=== PATIENT | female | born 1985 | race African-American/Black ===

== ENCOUNTER 2016-05-20 05:32 | Inpatient (IN) | payer OTHER ==
[2016-05-20] MEDS ORDERED: RINGERS SOLUTION,LACTATED 1,000 ML IV PRN (05:49)
[2016-05-20] MEDS ORDERED: OXYTOCIN/NORMAL SALINE 20 UNIT/1,000 ML RTUINJ ONE (05:56)
[2016-05-20] MEDS ORDERED: MISOPROSTOL 0.2 MG TABLET ONE (05:56)
[2016-05-20] MEDS ORDERED: LIDOCAINE 1% INJ-PF (10 MG/ML) 30 ML SDV ONE (05:56)
--- NOTE | 2016-05-20 06:23 | L&D General Admission ---
General Admit Datetime Report Generated by CPN: 05/20/2016 06:00 INFORMATION Patient Age: 31 (03/18/2016 14:35:QS system process) EDC: 06/09/2016 00:00 (05/20/2016 05:38:Kayla Dickinson RN) : 5 (05/20/2016 05:38:Kayla Dickinson RN) Para: 3 (05/20/2016 05:38:Kayla Dickinson RN) Term: 3 (05/20/2016 05:38:Kayla Dickinson RN) : 0 (05/20/2016 05:38:Kayla Dickinson RN) Spontaneous Abortions: 0 (05/20/2016 05:38:Kayla Dickinson RN) Induced Abortions: 0 (05/20/2016 05:38:Kayla Dickinson RN) Livin (05/20/2016 05:38:Kayla Dickinson RN) Baby, Number in Womb: 1 (05/20/2016 05:38:Sharon Chowdary) CARE Primary Commercial Roofing Estimator: [facility] (05/20/2016 05:38:Sharon Chowdary) Height (in): 70 (05/20/2016 05:45:QS system process) ALLERGIES Medication Allergy: No (05/20/2016 05:38:Sharon Epi) Medication Allergies: No Known Drug Allergies (05/20/2016) (05/20/2016 05:41:QS system process) Latex Allergy: No Latex Allergies (05/20/2016 05:38:Sharonmani Chowdary) Food Allergies: none (05/20/2016 05:38:Sharon Epi) Environmental Allergies: none (05/20/2016 05:38:Sharon Chowdary) COMMUNICATION Primary Language: Serbian (05/20/2016 05:38:Sharon Chowdary) Medical Tx Preferred Language: Serbian (05/20/2016 05:38:Sharon Chowdary) DEMOGRAPHICS Address: [address] [place] [id number] (03/18/2016 14:35:QS system process) Zipcode: [address] (03/18/2016 14:35:QS system process) Home (03/18/2016 14:35:QS system process) SSN: [id number] (03/18/2016 14:35:QS system process) Next of Kin Name: JAYASHREE ARANA (03/18/2016 14:35:QS system process) Next of Kin (03/18/2016 14:35:QS system process) Next of Kin Relationship: SPO (03/18/2016 14:35:QS system process) Date of : 1985 (03/18/2016 14:35:QS system process) Marital Status: (03/18/2016 14:35:QS system process) Sex: Female (03/18/2016 14:35:QS system process) Race: (03/18/2016 14:35:QS system process) Ethnicity: Non- or (03/18/2016 14:35:QS system process) Jain: Jewish (03/18/2016 14:35:QS system process) DRUG AND ALCOHOL USE Alcohol: No (05/20/2016 05:38:Sharon Chowdary) Cigarettes: Never Smoker. [id number] (05/20/2016 05:38:Sharon Chowdayr) Marijuana: No (05/20/2016 05:38:Sharon Chowdary) Cocaine: No (05/20/2016 05:38:Sharon Chowdary) Other Illicit Drugs: No (05/20/2016 05:38:Sharon Chowdary) VACCINE HISTORY Influenza Vaccine: No (05/20/2016 05:38:Sharon Chowdary) Pneumococcal Vaccine: No (05/20/2016 05:38:Sharon Chowdary) Tetanus Vaccine: No (05/20/2016 05:38:Sharon Chowdary) Tdap Vaccine: No (05/20/2016 05:38:Sharon Chowdary) Hepatitis B Vaccine: No (05/20/2016 05:38:Sharon Chowdary) Direct Chill Caster: [employer] (05/20/2016 05:38:Sharon Chowdary) Feeding Preference: Both (05/20/2016 05:38:Sharon Chowdary) Circumcision: Yes (05/20/2016 05:38:Sharon Chowdary) Tubal Ligation: No (05/20/2016 05:38:Sharon Chowdary) Tubal Authorization Signed: N/A (05/20/2016 05:38:Sharon Chowdary) Consent: N/A (05/20/2016 05:38:Sharon Chowdary) Consent Signed: N/A (05/20/2016 05:38:Sharon Chowdary) Plans for Labor and Delivery: None (05/20/2016 05:38:Sharon Chowdary) Support Person: emanual (05/20/2016 05:38:Sharon Chowdary) Support Person Relationship: (05/20/2016 05:38:Sharon Chowdary) Cultural/Spritual Practice: N/A (05/20/2016 05:38:Sharon Chowdary) Spir/Cult Dietary Needs: N/A (05/20/2016 05:38:Sharon Chowdary) LIVING SITUATION/DISCHARGE PLAN Living Arrangements: House (05/20/2016 05:38:Sharon Chowdary) Adequate Access to:: Electric; Heat; Refrigeration; Plumbing/Running water; Phone; Transportation (05/20/2016 05:38:Sharon Chowdary) WIC Program: Yes (05/20/2016 05:38:Sharon Chowdary) Discharge Blanker Operator Person: marlenual (05/20/2016 05:38:Sharon Chowdary) Person to Help after Discharge: emanual (05/20/2016 05:38:Sharon Chowdary) Currently Using Commun Resources: No (05/20/2016 05:38:Sharon Chowdary) Car Seat for Discharge: Yes (05/20/2016 05:38:Sharon Chowdary) LABS Blood Type: B Positive (05/20/2016 05:38:Kayla Dickinson RN) Group Beta Strep: negative (05/20/2016 05:38:Kayla Dickinson RN) Gonorrhea: Negative (05/20/2016 05:38:Kayla Dickinson RN) Chlamydia: Negative (05/20/2016 05:38:Kayla Dickinson RN) RPR/VDRL: Nonreactive (05/20/2016 05:38:Kayla Dickinson RN) HIV Results: nonreactive (05/20/2016 05:38:Kayla Dickinson RN) Hepatitis B: Negative (05/20/2016 05:38:Kayla Dickinson RN) Rubella: Immune (05/20/2016 05:38:Kayla Dickinson RN) OB/PREVIOUS HISTORY History of Previous : No (05/20/2016 05:38:Sharon Chowdary) History of Gestational Diabetes: No (05/20/2016 05:38:Sharon Chowdary) History of PIH: No (05/20/2016 05:38:Sharon Chowdary) History of Incompetent Cervix: No (05/20/2016 05:38:Sharon Chowdary) History of Placenta Previa/Abrup: No (05/20/2016 05:38:Sharon Chowdary) History of Macrosomia: No (05/20/2016 05:38:Sharon Chowdary) History of IUGR: No (05/20/2016 05:38:Sharon Chowdary) History of Hemorrhage: No (05/20/2016 05:38:Sharon Chowdary) History of Loss/Stillborn: No (05/20/2016 05:38:Sharon Chowdary) History of : No (05/20/2016 05:38:Sharon Chowdary) History of D (Rh) Sensitization: No (05/20/2016 05:38:Sharon Chowdary) History Recurrent Loss/Stillborn: No (05/20/2016 05:38:Sharon Chowdary) History Depression/PP Depression: No (05/20/2016 05:38:Sharon Chowdary) History of Uterine Anomaly/IRMA: No (05/20/2016 05:38:Sharon Chowdary) History of Infertility: No (05/20/2016 05:38:Sharon Chowdary) History of ART Treatment: No (05/20/2016 05:38:Sharon Chowdary) History of IRMA: No (05/20/2016 05:38:Sharon Chowdary) Comments Obstetrical History: 1st 2005 2nd 2007 3rd 2012 current 2016 (05/20/2016 05:38:Sharon Chowdary) MEDICAL HISTORY Med Hx Diabetes: No (05/20/2016 05:38:Sharon Chowdary) Med Hx Hypertension: No (05/20/2016 05:38:Sharon Chowdary) Med Hx Heart Disease: No (05/20/2016 05:38:Sharon Chowdary) Med Hx Autoimmune Disorder: No (05/20/2016 05:38:Sharon Chowdary) Med Hx Kidney Disease/UTI: No (05/20/2016 05:38:Sharon Chowdary) Med Hx Neurologic/Epilepsy: No (05/20/2016 05:38:Sharon Chowdary) Med Hx Psychiatric Disorders: No (05/20/2016 05:38:Sharon Chowdary) Med Hx Hepatitis/Liver Disease: No (05/20/2016 05:38:Sharon Chowdary) Med Hx Varicosities/Phlebitis: No (05/20/2016 05:38:Sharon Chowdary) Med Hx Thyroid Dysfunction: No (05/20/2016 05:38:Sharon Chowdary) Med Hx Trauma/Violence: No (05/20/2016 05:38:Sharon Chowdary) Med Hx Blood Transfusion: No (05/20/2016 05:38:Sharon Chowdary) Med Hx Pulmonary (Asthma,TB): No (05/20/2016 05:38:Sharon Chowdary) Med Hx Breast: No (05/20/2016 05:38:Sharon Chowdary) Med Hx ASSESSMENT MANAGER Surgery: No (05/20/2016 05:38:Sharon Chowdary) Med Hx Hospitalization/Surgery: No (05/20/2016 05:38:Sharon Chowdary) Med Hx Anesthetic Complications: No (05/20/2016 05:38:Sharon Chowdary) Med Hx Abnormal Pap Smear: No (05/20/2016 05:38:Sharon Chowdary) Other Medical Diseases: No (05/20/2016 05:38:Sharon Chowdary) Med Hx Significant Family Hx: No (05/20/2016 05:38:Sharon Chowdary) INFECTIOUS HISTORY Inf Hx Gonorrhea: No (05/20/2016 05:38:Sharon Chowdary) Inf Hx Chlamydia: No (05/20/2016 05:38:Sharon Chowdary) Inf Hx Syphilis: No (05/20/2016 05:38:Sharon Chowdary) Inf Hx HIV/AIDS: No (05/20/2016 05:38:Sharon Chowdary) Inf Hx Human Papilloma Virus: No (05/20/2016 05:38:Sharon Chowdary) Inf Hx Pt/Partner Genital Herpes: No (05/20/2016 05:38:Sharon Chowdary) Inf Hx Tuberculosis/Exposure: No (05/20/2016 05:38:Sharon Chowdary) Inf Hx Hepatitis B,C: No (05/20/2016 05:38:Sharon Chowdary) Inf Hx Rash or Viral Illness: No (05/20/2016 05:38:Sharon Chowdary) GENETIC HISTORY Gen Hx Age >=35 at ADRY: No (05/20/2016 05:38:Sharon Chowdary) Gen Hx Thalassemia: No (05/20/2016 05:38:Sharon Chowdary) Gen Hx Congenital Heart Defect: No (05/20/2016 05:38:Sharon Chowdary) Gen Hx Neural Tube Defect: No (05/20/2016 05:38:Sharon Chowdary) Gen Hx Down's Syndrome: No (05/20/2016 05:38:Sharon Chowdary) Gen Hx Pacheco-Sachs: No (05/20/2016 05:38:Sharon Chowdary) Gen Hx Ricardo: No (05/20/2016 05:38:Sharon Chowdary) Gen Hx Familial Dysautonomia: No (05/20/2016 05:38:Sharon Chowdary) Gen Hx Sickle Cell Disease/Trait: No (05/20/2016 05:38:Sharon Chowdary) Gen Hx Hemophilia/Blood Disorder: No (05/20/2016 05:38:Sharon Chowdary) Gen Hx Muscular Dystrophy: No (05/20/2016 05:38:Sharon Chowdary) Gen Hx Cystic Fibrosis: No (05/20/2016 05:38:Sharon Chowdary) Gen Hx Huntingtons Chorea: No (05/20/2016 05:38:Sharon Chowdary) Gen Hx Mental Retardation/Autism: No (05/20/2016 05:38:Sharon Chowdary) Gen Hx Tested for Fragile X: No (05/20/2016 05:38:Sharon Chowdary) Gen Hx Other Inher/Chromosomal: No (05/20/2016 05:38:Sharon Chowdary) Gen Hx Maternal Metabolic DO: No (05/20/2016 05:38:Sharon Chowdary) Gen Hx Pt Father or FOB Defect: No (05/20/2016 05:38:Sharon Chowdary) Gen Hx Other Genetic History: No (05/20/2016 05:38:Sharon Chowdary) Gen Hx Drugs/Meds since LMP: No (05/20/2016 05:38:Sharon Chowdray)
[2016-05-20 06:29] LABS: ABSOLUTE BASOPHILS # (AUTO) 0.1 10^3/uL (0.0-0.2); ABSOLUTE EOSINOPHILS # (AUTO) 0.3 10^3/uL (0.0-0.6); ABSOLUTE MONOCYTES (AUTO) 0.9 10^3/uL (0.1-1.4); ABSOLUTE NEUT (AUTO) 6.7 10^3/uL (1.7-8.2); BASOPHILS % (AUTO) 0.7 % (0-2); EOSINOPHILS % (AUTO) 3.2 % (0-6); HEMATOCRIT 31.6 % (36.0-47.0); HEMOGLOBIN 10.4 g/dL (12.0-15.5); HGB HCT DIFFERENCE -0.4; LYMPHOCYTES % (AUTO) 20.4 % (13-45); MEAN CORPUSCULAR HEMOGLOBIN 27.6 pg (27.0-33.4); MEAN CORPUSCULAR VOLUME 83 fl (80-97); MONOCYTES % (AUTO) 8.6 % (3-13); RED BLOOD COUNT 3.79 10^6/uL (3.72-5.28); RED CELL DISTRIBUTION WIDTH 12.9 % (11.5-14.0); SEGMENTED NEUTROPHILS % (AUTO) 67.1 % (42-78)
[2016-05-20] MEDS ORDERED: ACETAMINOPHEN WITH CODEINE #3 TABLET ONE (06:30)
[2016-05-20] MEDS ORDERED: IBUPROFEN 800 MG TABLET ONE (06:30)
--- NOTE | 2016-05-20 07:34 | Delivery Summary ---
Del Sum A-C Datetime Report Generated by CPN: 05/20/2016 07:34 ADMISSION DATA Chief Complaint: Uterine Contractions Indication for Induction: Not Applicable Admission Impression: Term, Intrauterine ; Active Labor; Intact Membranes Admit Provider Comments: Term precipitous labor and delivery. GBS neg DELIVERY PERSONNEL Delivery Doctor:: Leatha Tobar MD Labor and Delivery Nurse:: Sharon Chowdary RNcontinuous still operator Nurse:: Genoveva Ugarte RN Nursery Nurse:: Juany Cox RN Additional Personnel: : C. Fore RN MATERNAL INFORMATION Delivery Anesthesia: None Medications After Delivery: Pitocin Bolus-Please Comment; Pitocin Drip 20 Units/1000ml NSS Meds After Delivery Comment: 20 units pitocin after placenta delivery Estimated Blood Loss (ml): 350 Maternal Complications: Precipitous Labor (<3hrs) Provider Comments: Nurse controlled over intact perineum, no lacs. live male infant ap 9/9. spontaneous intact placenta 3vc. no complications LABOR SUMMARY EDC: 06/09/2016 00:00 No. Babies in Womb: 1 Attempted: No Labor Anesthesia: None LABOR INFORMATION Reason for Induction: Not Applicable Onset of Labor: 05/20/2016 04:00 Complete Dilatation: 05/20/2016 06:10 Oxytocin: N/A Group B Beta Strep: negative Steroids Given: None Reason Steroids Not Administered: Not Applicable MEMBRANES Membranes Rupture Method: Spontaneous Rupture of Membranes: 05/20/2016 06:10 Length of Rupture (hr): 0.02 Amniotic Fluid Color: Clear Amniotic Fluid Amount: Moderate STAGES OF LABOR Stage 1 hr: 2 Stage 1 min: 10 Stage 2 hr: 0 Stage 2 min: 1 Stage 3 hr: 0 Stage 3 min: 9 Total Time in Labor hr: 2 Total Time in Labor min: 20 VAGINAL DELIVERY Episiotomy: None Laceration Extension: N/A Laceration Type: None Laceration Repair: Not Applicable CSECTION DELIVERY Primary Indication: N/A Secondary Indication: N/A CSection Incidence: N/A Labor: N/A Elective: N/A CSection Incision: N/A BABY A INFORMATION Infant Delivery Date/Time: 05/20/2016 06:11 Method of Delivery: Vaginal Born in Route : No : N/A Forceps: N/A Vacuum Extraction: N/A Shoulder Dystocia : No PRESENTATION/POSITION BABY A Presentation: Cephalic Cephalic Presentation: Vertex Vertex Position: Left Occipital Anterior Breech Presentation: N/A PLACENTA INFORMATION BABY A Placenta Delivery Time : 05/20/2016 06:20 Placenta Method of Delivery: Spontaneous Placenta Status: Delivered SCORES BABY A Heart Rate 1 min: >100 bpm Resp Effort 1 min: Good Cry Reflex Irritability 1 min: Cough or Sneeze or Pulls Away Muscle Tone 1 min: Active Motion Color 1 min: Body [place], Extremities Blue Resuscitation Effort 1 min: Tactile Stimulation SCORE 1 MIN: 9 Heart Rate 5 min: >100 bpm Resp Effort 5 min: Good Cry Reflex Irritability 5 min: Cough or Sneeze or Pulls Away Muscle Tone 5 min: Active Motion Color 5 min: Body [place], Extremities Blue SCORE 5 MIN: 9 INFANT INFORMATION BABY A Gestational Age at Delivery: 37.1 Gestational Status: Early Term- 37- 38.6 Weeks Outcome : Liveborn Condition : Stable Infant Sex: Male WEIGHT/LENGTH BABY A Birthweight (gm): 2415 Weight (lb): 5 Weight (oz): 5 Length (in): 18.50 Length (cm): 46.99 CORD INFORMATION BABY A Nuchal Cord : N/A Suction: Mouth ASSESSMENT BABY A Infant Complications: None Physical Findings at Delivery: Within Normal Limits Respirations: Appears Normal Skin to Skin: Yes Skin to Skin Time (min): 10 Email Marketing Processor/ALS Called : No Care By: Belia Philippeer RN Transferred To: Remains with Mother BABY B INFORMATION : N/A SIGNATURES Signature: with User ID: [email or web address]
--- NOTE | 2016-05-20 08:01 | L&D Flow Sheet ---
LD Flowsheet Datetime Report Generated by CPN: 05/20/2016 08:00 Datetime: 05/20/2016 07:45 Vital Signs Stage of : Recovery (Merly Serna, RN) Datetime: 05/20/2016 07:36 NBP Sys/Miriam/Mean (mmHg): 127 (QS system process) : 88 (QS system process) : 103 (QS system process) Pulse: 84 (QS system process) Datetime: 05/20/2016 07:30 Vital Signs Stage of : Recovery (Merly Serna, RN) Datetime: 05/20/2016 06:51 NBP Sys/Miriam/Mean (mmHg): 121 (QS system process) : 86 (QS system process) : 99 (QS system process) Pulse: 86 (QS system process) Datetime: 05/20/2016 06:40 Temperature (F): 98.3 (Sharon Chowdary) Temperature (C): 36.8 (QS system process) Temperature Route: Oral (Sharon Chowdary) Datetime: 05/20/2016 06:38 Pain Pain Scale: 4 (Sharon Chowdary) Pain Presence: Constant (Sharon Chowdary) Pain Type: Cramping (Sharon Chowdary) Pain Location: Abdomen; Perineum (Sharon Chowdary) Pain Goal: 0 (Sharon Chowdary) Pain Relief Measures: Pain Medication Given (Sharon Chowdary) Datetime: 05/20/2016 06:20 NBP Sys/Miriam/Mean (mmHg): 123 (QS system process) : 67 (QS system process) : 90 (QS system process) Pulse: 85 (QS system process) Datetime: 05/20/2016 06:18 Vital Signs Stage of : Recovery (Sharon Chowdary) Datetime: 05/20/2016 06:15 Vital Signs Stage of : Recovery (Sharon Chowdary) Datetime: 05/20/2016 06:12 Vital Signs Stage of : Recovery (Sharon Chowdary) NBP Sys/Miriam/Mean (mmHg): 122 (QS system process) : 83 (QS system process) : 98 (QS system process) Pulse: 83 (QS system process) Datetime: 05/20/2016 06:11 Patient Position/Activity: Left Lateral (Sharon Chowdary) Stage 2 Comments: of viable baby boy, see delivery summary (Sharon Chowdary) Datetime: 05/20/2016 06:10 Vaginal Exam Dilatation (cm): 10.0 (Sharon Chowdary) Effacement (%): 100 (Sharon Chowdary) Station: 3 (Sharon Chowdary) Membranes Rupture Method: Spontaneous (Sharon Chowdary) Amniotic Fluid Color: Clear (Sharon Chowdary) Amniotic Fluid Amount: Moderate (Sharon Chowdary) Stage 2 Pushing: Urge to Push (Sharon Chowdary) Pushing Progress: Descent with Pushing; Presenting Part Visible (Sharon Chowdary) Datetime: 05/20/2016 06:09 Patient Position/Activity: Hands-Knees (Sharon Chowdary) Datetime: 05/20/2016 06:08 Patient Position/Activity: Left Lateral (Sharon Chowdary) Datetime: 05/20/2016 06:05 Patient Care IV/Blood Work: IV Started (Sharon Chowdary) Patient Care Comments: 18G In RFA x3 attempts (Sharon Chowdary) Datetime: 05/20/2016 06:02 Communication Comments: Dr. Tobar called and informed pt was 9 cm. (Kayla Teena, RN) Datetime: 05/20/2016 05:54 Pain Pain Scale: 5 (Sunshine) Pain Presence: Intermittent (Sunshine) Pain Type: Cramping (Sunshine) Pain Location: Abdomen; Back (Sunshine) Pain Goal: 0 (Sunshine) Pain Relief Measures: Comfort Measures (Sunshine) Pain Coping: Breathing Through Contractions (Sunshine) Vaginal Bleeding: None (Sunshine) Maternal Assessment Level of Consciousness: Fully Conscious (Sharon Chowdary) DTR's/Clonus: DTRs 2+; No Clonus (Sharon Chowdary) Headache: Denies (Sharon Chowdary) Breath Sounds, Left: Clear and Equal (Sharon Chowdary) Breath Sounds, Right: Clear and Equal (Sharon Chowdary) Nausea/Vomiting: Denies (Sharon Chowdary) RUQ Epigastric Pain: Denies (Sharon Chowdary) Patient Position/Activity: Right Tilt (Sharon Chowdary) Teaching Instructional Method: Verbal (Sharon Chowdary) Plan of Care: Plan of Care Discussed (Sharon Chowdary) Unit Routine: [place] to Room; Call [place]itten; Bed; Visiting Policy; Waiting Areas; Infant Security; Phone/Cell Phone Use; Photography; Unit Personnel; Consents Signed; Handwashing; Flu/Illness Precautions; Monitoring; IV Pumps; Safety/Fall Risk Prevention; Diet/Nutrition Services; Bathroom Privileges; Routine Time Outs; Medications (Sharon Chowdary) Datetime: 05/20/2016 05:46 NBP Sys/Miriam/Mean (mmHg): 128 (QS system process) : 58 (QS system process) : 83 (QS system process) Pulse: 93 (QS system process) Datetime: 05/20/2016 05:45 Communication Provider Notified (Name): Dr Tobar notified of the patient presented with contractions cervix 5/80/-1. Orders recieved to admit the patient. (Sharon Chowdary) Datetime: 05/20/2016 05:42 Vaginal Exam Dilatation (cm): 5.0 (Sharon Chowdary) Effacement (%): 70 (Sharon Chowdary) Station: -1 (Sharon Chowdary) Exam by: A Chowdary Rn (Sharon Chowdary) Datetime: 05/20/2016 05:38 Membranes Ruptured Date/Time: 05/20/2016 06:10 (Sharon Chowdary) Patient Care Comments: patient to the unit for labor check (Sharon Chowdary)
[2016-05-20] MEDS ORDERED: ACETAMINOPHEN WITH CODEINE #3 TABLET PO PRN ×2 (08:02)
[2016-05-20] MEDS ORDERED: MEASLES,MUMPS&RUBELLA VACC/PF 0.5 ML VIAL SUBCUT PRN (08:02)
[2016-05-20] MEDS ORDERED: ZOLPIDEM TARTRATE 5 MG TABLET PO PRN (08:02)
[2016-05-20] MEDS ORDERED: DIBUCAINE 1% OINTMENT 28 GM TP PRN (08:02)
[2016-05-20] MEDS ORDERED: DIPH/PERTUSS(ACELL)/TETANUS VAC/PF 0.5 ML SYR (>=10YO) IM PRN (08:02)
[2016-05-20] MEDS ORDERED: BENZOCAINE/MENTHOL AEROSOL SPRAY 56 ML TOP PRN (08:02)
[2016-05-20] MEDS ORDERED: OXYTOCIN/NORMAL SALINE 1,000 ML IV PRN (08:02)
--- NOTE | 2016-05-20 08:31 | Admission Physical ---
Datetime Report Generated by CPN: 05/20/2016 08:30 CURRENT ADMISSION Hx Assessment: The History has been Reviewed and is Current Chief Complaint: Uterine Contractions Indication for Induction: Not Applicable Admit Plan: Admit to Unit; Initiate Labor Protocol ALLERGIES Medication Allergies: No Medication Allergies: No Known Drug Allergies (05/20/2016) Latex: No Latex Allergies Food Allergies: none Environmental Allergies: none OBSTETRICAL HISTORY EDC: 06/09/2016 00:00 : 5 Para: 3 Term: 3 : 0 SAB: 0 IAB: 0 Livin Gestational Diabetes: No Rh Sensitization: No Incompetent Cervix: No IRMA: No Infertility: No ART Treatment: No Uterine Anomaly: No IUGR: No Hx Previous C/S: No Macrosomia: No Hx Loss/Stillborn: No PIH: No Hx : No Placenta Previa/Abruption: No Depression/PP Depression: No PTL/PROM: No Post Hemorrhage: No Obstetrical History Comments: 1st 2005- labor 8hrs 2nd 2007- labor 3 hrs 3rd 2012- labor 1 hr preciptous current 2016 SEE RECORDS Alcohol: No Marijuana : Yes Marijuana Frequency: Occasional Previous Treatment: None Cocaine: No Other Illicit Drugs: No Cigarettes: Current Some Day Smoker. [id number] Cigarette Frequency: < 5 per day Advised to Stop: Yes MEDICAL HISTORY Diabetes: No Blood Transfusion: No Pulmonary Disease (Asthma, TB): No Breast Disease: No Hypertension: No Oil Filters Inspector Surgery: No Heart Disease: No Hosp/Surgery: No Autoimmune Disorder: No Anesthetic Complications: No Kidney Disease: No Abnormal Pap Smear: No Neuro/Epilepsy: No Psychiatric Disorders: No Other Medical Diseases: No Hepatitis/Liver Disease: No Significant Family History: No Varicosities/Phlebitis: No Trauma/Violence : No Thyroid Dysfunction: No Medical History Comments: anemia sickle cell trait INFECTIOUS HISTORY Gonorrhea: No Genital Herpes: No Chlamydia: No Tuberculosis: No Syphilis: No Hepatitis: No HIV/AIDS Exposure: No Rash or Viral Illness: No HPV: No PHYSICAL EXAM General: Normal HEENT: Deferred Neurologic: Deferred Thyroid: Deferred Heart: Normal Lungs: Normal Breast: Deferred Back: Deferred Abdomen: Normal Genitourinary Exam: Normal Extremities: Normal DTRs: Normal Pelvic Type: Adequate Vital Signs: Reviewed; Within Normal Limits FETUS A EGA: 37.1 FHR- Baseline: 140 Variability: Moderate 6-25bpm Accelerations: Absent Decelerations: Variable FHR Category: Category II Admit Comment: Term precipitous labor and delivery. GBS neg PLANS FOR LABOR AND DELIVERY Labor and Delivery: None Pain Management: None Feeding Preference: Both Circumcision: Yes INFORMED CONSENT Signature: with User ID: [email or web address]
[2016-05-20] MEDS: DOCUSATE SODIUM 100 MG CAPSULE PO SCH ×2 (10:20→17:54)
[2016-05-20] MEDS: SENNOSIDES/DOCUSATE 8.6-50 MG 1 EACH TABLET PO SCH (10:21)
[2016-05-20] MEDS: PRENATAL VITAMIN W-O CA NO5/FE FUMARATE/FA CAPSULE PO SCH (10:21)
[2016-05-20] MEDS: FERROUS SULFATE 325 MG TABLET PO SCH ×2 (10:21→17:54)
[2016-05-20] MEDS: IBUPROFEN 800 MG TABLET PO SCH ×2 (13:49→21:50)
[2016-05-20 14:47] LABS: URINE BARBITURATES SCREEN NEGATIVE; URINE METHADONE SCREEN NEGATIVE; URINE PHENCYCLIDINE SCREEN NEGATIVE
--- NOTE | 2016-05-20 19:01 | L&D Flow Sheet ---
LD Flowsheet Datetime Report Generated by CPN: 05/20/2016 19:00 Datetime: 05/20/2016 08:09 NBP Sys/Miriam/Mean (mmHg): 130 (QS system process) : 76 (QS system process) : 98 (QS system process) Pulse: 89 (QS system process) Datetime: 05/20/2016 08:06 NBP Sys/Miriam/Mean (mmHg): 151 (Annotations: PT moving arm) (Merly Serna RN) : 110 (QS system process) : 121 (QS system process) Pulse: 84 (QS system process) Datetime: 05/20/2016 07:45 Stage of : Recovery (Merly Serna, RN) Datetime: 05/20/2016 07:36 NBP Sys/Miriam/Mean (mmHg): 127 (QS system process) : 88 (QS system process) : 103 (QS system process) Pulse: 84 (QS system process) Datetime: 05/20/2016 07:30 Stage of : Recovery (Merly Kareem, RN)
[2016-05-21] MEDS: IBUPROFEN 800 MG TABLET PO SCH ×3 (05:19→21:45)
--- NOTE | 2016-05-21 06:11 | L&D General Admission ---
General Admit Datetime Report Generated by CPN: 05/21/2016 06:00 INFORMATION Patient Age: 31 (03/18/2016 14:35:QS system process) EDC: 06/09/2016 00:00 (05/20/2016 05:38:Kayla Dickinson RN) : 5 (05/20/2016 05:38:Kayla Dickinson RN) Para: 3 (05/20/2016 05:38:Kayla Dickinson RN) Term: 3 (05/20/2016 05:38:Kayla Dickinson RN) : 0 (05/20/2016 05:38:Kayla Dickinson RN) Spontaneous Abortions: 0 (05/20/2016 05:38:Kayla Dickinson RN) Induced Abortions: 0 (05/20/2016 05:38:Kayla Dickinson RN) Livin (05/20/2016 05:38:Kayla Dickinson RN) Baby, Number in Womb: 1 (05/20/2016 05:38:Sharon Chowdary) CARE Primary Qi Specialist: [facility] (05/20/2016 05:38:Sahron Chowdary) Height (in): 70 (05/20/2016 05:45:QS system process) ALLERGIES Medication Allergy: No (05/20/2016 05:38:Sharon Epi) Medication Allergies: No Known Drug Allergies (05/20/2016) (05/20/2016 05:41:QS system process) Latex Allergy: No Latex Allergies (05/20/2016 05:38:Sharonmani Chowdary) Food Allergies: none (05/20/2016 05:38:Sharon Epi) Environmental Allergies: none (05/20/2016 05:38:Sharon Chowdary) COMMUNICATION Primary Language: Portuguese (05/20/2016 05:38:Sharon Chowdary) Medical Tx Preferred Language: Portuguese (05/20/2016 05:38:Sharon Chowdary) DEMOGRAPHICS Address: [address] [place] [id number] (03/18/2016 14:35:QS system process) Zipcode: [address] (03/18/2016 14:35:QS system process) Home (03/18/2016 14:35:QS system process) SSN: [id number] (03/18/2016 14:35:QS system process) Next of Kin Name: JAYASHREE ARANA (03/18/2016 14:35:QS system process) Next of Kin (03/18/2016 14:35:QS system process) Next of Kin Relationship: SPO (03/18/2016 14:35:QS system process) Date of : 1985 (03/18/2016 14:35:QS system process) Marital Status: (03/18/2016 14:35:QS system process) Sex: Female (03/18/2016 14:35:QS system process) Race: (03/18/2016 14:35:QS system process) Ethnicity: Non- or (03/18/2016 14:35:QS system process) Rastafarian: Zoroastrian (03/18/2016 14:35:QS system process) DRUG AND ALCOHOL USE Alcohol: No (05/20/2016 05:38:Sharon Chowdary) Cigarettes: Current Some Day Smoker. [id number] (05/20/2016 05:38:Merly Serna RN) Average Cigarettes Smoked: < 5 per day (05/20/2016 05:38:Merly Serna RN) Advised to Stop Smoking: Yes (05/20/2016 05:38:Merly Serna RN) Marijuana: Yes (05/20/2016 05:38:Merly Serna RN) Marijuana Use: Occasional (05/20/2016 05:38:Merly Serna RN) Marijuana Previous Treatment: None (05/20/2016 05:38:Merly Serna RN) Cocaine: No (05/20/2016 05:38:Sharonmani Chowdary) Other Illicit Drugs: No (05/20/2016 05:38:Sharon Epi) VACCINE HISTORY Influenza Vaccine: No (05/20/2016 05:38:Sharon Chowdary) Pneumococcal Vaccine: No (05/20/2016 05:38:Sharon Chowdary) Tetanus Vaccine: No (05/20/2016 05:38:Sharon Chowdary) Tdap Vaccine: No (05/20/2016 05:38:Sharon Chowdary) Hepatitis B Vaccine: No (05/20/2016 05:38:Sharon Chowdary) Boat Joiner: [facility] (05/20/2016 05:38:Sharon Chowdary) Feeding Preference: Both (05/20/2016 05:38:Sharon Chowdary) Circumcision: Yes (05/20/2016 05:38:Sharon Chowdary) Tubal Ligation: No (05/20/2016 05:38:Sharon Chowdary) Tubal Authorization Signed: N/A (05/20/2016 05:38:Sharon Chowdary) Consent: N/A (05/20/2016 05:38:Sharon Chowdary) Consent Signed: N/A (05/20/2016 05:38:Sharon Chowdary) Pain Management Plans: None (05/20/2016 05:38:Merly Serna RN) Plans for Labor and Delivery: None (05/20/2016 05:38:Sharon Chowdary) Support Person: emanual (05/20/2016 05:38:Sharon Chowdary) Support Person Relationship: (05/20/2016 05:38:Sharon Chowdary) Cultural/Spritual Practice: N/A (05/20/2016 05:38:Sharon Chowdary) Spir/Cult Dietary Needs: N/A (05/20/2016 05:38:Sharon Chowdary) LIVING SITUATION/DISCHARGE PLAN Living Arrangements: House (05/20/2016 05:38:Sharon Chowdary) Adequate Access to:: Electric; Heat; Refrigeration; Plumbing/Running water; Phone; Transportation (05/20/2016 05:38:Sharon Chowdary) WIC Program: Yes (05/20/2016 05:38:Sharon Chowdary) Discharge Lease Administration Analyst Person: samanta (05/20/2016 05:38:Sharon Chowdary) Person to Help after Discharge: marlenual (05/20/2016 05:38:Sharon Chowdary) Currently Using Commun Resources: No (05/20/2016 05:38:Sharon Chowdary) Outside Agency/Vehicle Painter: No (05/20/2016 05:38:Merly Srena RN) Car Seat for Discharge: Yes (05/20/2016 05:38:Sharon Chowdary) Adoption Requested: No (05/20/2016 05:38:Merly Serna RN) Pt Contact w/ Post : N/A (05/20/2016 05:38:Merly Serna RN) LABS Blood Type: B Positive (05/20/2016 05:38:Kayla Dickinson RN) Hemoglobin: 10.4 L (05/20/2016 06:03:QS system process) Hematocrit: 31.6 L (05/20/2016 06:03:QS system process) MCV: 83 (05/20/2016 06:03:QS system process) Group Beta Strep: negative (05/20/2016 05:38:Kayla Dickinson RN) Gonorrhea: Negative (05/20/2016 05:38:Kayla Dickinson RN) Chlamydia: Negative (05/20/2016 05:38:Kayla Dickinson RN) RPR/VDRL: Nonreactive (05/20/2016 05:38:Kayla Dickinson RN) HIV Results: nonreactive (05/20/2016 05:38:Kayla Dickinson RN) Hepatitis B: Negative (05/20/2016 05:38:Kayla Dickinson RN) Rubella: Immune (05/20/2016 05:38:Kayla Dickinson RN) OB/PREVIOUS HISTORY History of Previous : No (05/20/2016 05:38:Sharon Chowdary) History of Gestational Diabetes: No (05/20/2016 05:38:Sharon Chowdary) History of PIH: No (05/20/2016 05:38:Sharon Chowdary) History of Incompetent Cervix: No (05/20/2016 05:38:Sharon Chowdary) History of Placenta Previa/Abrup: No (05/20/2016 05:38:Sharon Chowdary) History of Macrosomia: No (05/20/2016 05:38:Sharon Chowdary) History of IUGR: No (05/20/2016 05:38:Sharon Chowdary) History of Hemorrhage: No (05/20/2016 05:38:Sharon Chowdary) History of Loss/Stillborn: No (05/20/2016 05:38:Sharon Chowdary) History of : No (05/20/2016 05:38:Sharon Chowdary) History of D (Rh) Sensitization: No (05/20/2016 05:38:Sharon Chowdary) History Recurrent Loss/Stillborn: No (05/20/2016 05:38:Sharon Chowdary) History Depression/PP Depression: No (05/20/2016 05:38:Sharon Chowdary) History of Uterine Anomaly/IRMA: No (05/20/2016 05:38:Sharon Chowdary) History of Infertility: No (05/20/2016 05:38:Sharon Chowdary) History of ART Treatment: No (05/20/2016 05:38:Sharon Chowdary) History of IRMA: No (05/20/2016 05:38:Sharon Chowdary) Comments Obstetrical History: 1st 2005- labor 8hrs 2nd 2007- labor 3 hrs 3rd 2012- labor 1 hr preciptous current 2016 (05/20/2016 05:38:Sharon Chowdary) MEDICAL HISTORY Med Hx Diabetes: No (05/20/2016 05:38:Sharon Chowdary) Med Hx Hypertension: No (05/20/2016 05:38:Sharon Chowdary) Med Hx Heart Disease: No (05/20/2016 05:38:Sharon Chowdary) Med Hx Autoimmune Disorder: No (05/20/2016 05:38:Sharon Chowdary) Med Hx Kidney Disease/UTI: No (05/20/2016 05:38:Sharon Chowdary) Med Hx Neurologic/Epilepsy: No (05/20/2016 05:38:Sharon Chowdary) Med Hx Psychiatric Disorders: No (05/20/2016 05:38:Sharon Chowdary) Med Hx Hepatitis/Liver Disease: No (05/20/2016 05:38:Sharon Chowdary) Med Hx Varicosities/Phlebitis: No (05/20/2016 05:38:Sharon Chowdary) Med Hx Thyroid Dysfunction: No (05/20/2016 05:38:Sharon Chowdary) Med Hx Trauma/Violence: No (05/20/2016 05:38:Sharon Chowdary) Med Hx Blood Transfusion: No (05/20/2016 05:38:Sharon Chowdary) Med Hx Pulmonary (Asthma,TB): No (05/20/2016 05:38:Sharon Chowdary) Med Hx Breast: No (05/20/2016 05:38:Sharon Chowdary) Med Hx PROMOTIONAL MARKETING ANALYST Surgery: No (05/20/2016 05:38:Sharon Chowdary) Med Hx Hospitalization/Surgery: No (05/20/2016 05:38:Sharon Chowdary) Med Hx Anesthetic Complications: No (05/20/2016 05:38:Sharon Chowdary) Med Hx Abnormal Pap Smear: No (05/20/2016 05:38:Sharon Chowdary) Other Medical Diseases: No (05/20/2016 05:38:Sharon Chowdary) Med Hx Significant Family Hx: No (05/20/2016 05:38:Sharon Chowdary) Details of Med/Surg Hx: anemia sickle cell trait (05/20/2016 05:38:Sharon Chowdary) INFECTIOUS HISTORY Inf Hx Gonorrhea: No (05/20/2016 05:38:Sharon Chowdary) Inf Hx Chlamydia: No (05/20/2016 05:38:Sharon Chowdary) Inf Hx Syphilis: No (05/20/2016 05:38:Sharon Chowdary) Inf Hx HIV/AIDS: No (05/20/2016 05:38:Sharon Chowdary) Inf Hx Human Papilloma Virus: No (05/20/2016 05:38:Sharon Chowdary) Inf Hx Pt/Partner Genital Herpes: No (05/20/2016 05:38:Sharon Chowdary) Inf Hx Tuberculosis/Exposure: No (05/20/2016 05:38:Sharon Chowdary) Inf Hx Hepatitis B,C: No (05/20/2016 05:38:Sharon Chowdary) Inf Hx Rash or Viral Illness: No (05/20/2016 05:38:Sharon Chowdary) GENETIC HISTORY Gen Hx Age >=35 at ADRY: No (05/20/2016 05:38:Sharon Chowdary) Gen Hx Thalassemia: No (05/20/2016 05:38:Sharon Chowdary) Gen Hx Congenital Heart Defect: No (05/20/2016 05:38:Sharon Chowdary) Gen Hx Neural Tube Defect: No (05/20/2016 05:38:Sharon Chowdary) Gen Hx Down's Syndrome: No (05/20/2016 05:38:Sharon Chowdary) Gen Hx Pacheco-Sachs: No (05/20/2016 05:38:Sharon Chowdary) Gen Hx Ricardo: No (05/20/2016 05:38:Sharon Chowdary) Gen Hx Familial Dysautonomia: No (05/20/2016 05:38:Sharon Chowdary) Gen Hx Sickle Cell Disease/Trait: No (05/20/2016 05:38:Sharon Chowdary) Gen Hx Hemophilia/Blood Disorder: No (05/20/2016 05:38:Sharon Chowdary) Gen Hx Muscular Dystrophy: No (05/20/2016 05:38:Sharon Chowdary) Gen Hx Cystic Fibrosis: No (05/20/2016 05:38:Sharon Chowdary) Gen Hx Huntingtons Chorea: No (05/20/2016 05:38:Sharon Chowdary) Gen Hx Mental Retardation/Autism: No (05/20/2016 05:38:Sharon Chowdary) Gen Hx Tested for Fragile X: No (05/20/2016 05:38:Sharon Chowdary) Gen Hx Other Inher/Chromosomal: No (05/20/2016 05:38:Sharon Chowdary) Gen Hx Maternal Metabolic DO: No (05/20/2016 05:38:Sharon Chowdary) Gen Hx Pt Father or FOB Defect: No (05/20/2016 05:38:Sharon Chowdary) Gen Hx Other Genetic History: No (05/20/2016 05:38:Sharon Chowdary) Gen Hx Drugs/Meds since LMP: No (05/20/2016 05:38:Sharon Chowdary)
--- NOTE | 2016-05-21 06:25 | L&D Care Plan ---
LD CARE PLANS Datetime Report Generated by CPN: 05/21/2016 06:15 Datetime: 05/20/2016 07:52 Pain State: Risk For (Merly Serna RN) Related To: Labor and Delivery Process; Treatment and Procedures; Post (Merly Serna RN) Goal(s): Patients Pain will be Assessed and Managed; Patient will Verbalize Adequate Relief of Pain or the Ability to Model with Current Pain (Merly Serna RN) Interventions: Assess Pain Severity on Scale of 0 (None) to 5 (Severe); Assess Type, Location and Intensity of Pain Each Time Client Reports Discomfort and Notify Provider if Unusal Pain Develops; Encourage Proper Breathing and Relaxation Techniques; Offer Alternatives Such as Repositioning, Calm Environment, Massages, Diversional Activities, Ice Pack, Splinting, and Ambulation; Administer Analgesics as Ordered; Assist with Epidural Placement as Appropriate; Evaluate Therapeutic Effectiveness of Medication and Treatments (Merly Serna RN) Outcome: Patient will Report Absence or Relief of Pain Consistent with Established Pain Goal (Merly Serna RN) Status: Ongoing (Merly Serna RN) Outcome: Patient will have a Decrease in Signs and Symptoms of Discomfort (Merly Serna RN) Status: Ongoing (Merly Serna RN) Outcome: Pain will be Controlled During Procedures (Merly Serna RN) Status: Ongoing (Merly Serna RN) Anxiety State: Risk For (Merly Serna RN) Related To: Labor and Delivery Process; Situational Crisis; Medical Interventions; Significant Life Event (Merly Serna RN) Goal(s): Patient will have Decreased Anxiety and be able to Function at Acceptable Levels (Merly Serna RN) Interventions: Assess Verbal and Nonverbal Behavioral Indicators of Anxiety; Assist Patient to Identify and Verbalize Symptoms of Anxiety; Identify and Demonstrate Techniques to Control Anxiety; Assist Patient with Coping Mechanisms to Manage Anxiety; Provide Theraputic Touch for the Patient; Explain to Patient, Using a Calm Reassuring Approach and Nonmedical Terms, All Activities, Procedures, and Concerns; Instruct Patient and Family about Post Discharge Care, Limitations, Symptoms to Report and Resources Available (Merly Serna RN) Outcome: Patient will Identify, Verbalize and Demonstrate Techniques to Control Anxiety (Merly Serna RN) Status: Ongoing (Merly Serna RN) Outcome: Patient's Posture, Facial Expressions, Gestures and Activity Level will Reflect Decreased Anxiety (Merly Serna RN) Status: Ongoing (Merly Serna RN) Outcome: Patient will Verbalize a Sense of Control and/or Acceptance of the Situation (Merly Serna RN) Status: Ongoing (Merly Serna RN) Outcome: Patient will Identify and Utilize Support Person (Merly Serna RN) Status: Ongoing (Merly Serna RN) Knowledge Deficit State: Risk For (Merly Serna RN) Related To: Labor and Delivery Process; Treatment and Procedures; Impending Alterations in Family Dynamics; Feeding and Infant Care; Community Resources and Available Support Mechanisms (Merly Serna RN) Goal(s): Patient will Accurately Verbalize Understanding of Plan of Care and Treatment; Patient and Family will Accurately Verbalize Understanding of the Disease Process (Merly Serna RN) Interventions: Assess Motivation and Willingness of Patient/Family to Learn; Assess Preferred Learning Mode: One to One Instruction, Reading, Videos, Group Discussion or Demonstration; Assess Barriers to Learning: Pain, Emotional State, Language Barrier, Cognitive Impairment, Visual or Hearing Deficits; Assess Patient and Family Knowledge of Disease Process, Medications and Treatment; Discuss Therapy and/or Treatment Options, Describe Rationale Behind Management, Therapy and Treatment Recommendations; Instruct Patient and Family on Signs and Symptoms to Report; Instruct Patient and Family on Medication Effects and Side Effects; Provide Appropriate and Timely Education Using Multiple Techniques; Provide Patient and Family with Support Group Information and Resources; Give Clear and Thorough Explanations and Demonstrations (Merly Serna RN) Outcome: Patient and Family will Verbalize Understanding of Condition, Treatment and Signs and Symptoms to Report (Merly Serna RN) Status: Ongoing (Merly Serna RN) Outcome: Patient will Identify Perceived Learning Needs and Express Motivation to Learn (Merly Serna RN) Status: Ongoing (Merly Serna RN) Outcome: Patient will Verbalize Understanding of Desired Content, and/or Performs Desired Skill Prior to Discharge (Merly Serna RN) Status: Ongoing (Merly Serna RN) Infection State: Risk For (Merly Serna RN) Related To: Invasive Procedures (Merly Serna RN) Goal(s): The Patient will be Free of Infection, Vital Signs Stable and Lab Work within Normal Parameters (Merly Serna RN) Interventions: Instruct and Reinforce Proper Handwashing, Hygiene, and Care Techniques to Patient and Family; Monitor Vital Signs; Monitor Patient for the Following Signs of Infection: Fever, Abdominal Tenderness, Unusual Discharge; Monitor Aminiotic Fluid, Urine and Lochia for Color and Odor; Observe Wounds, Incisions and Invasive Line Sites for Redness, Drainage and Edema; Assess IV Sites per Hospital Policy; Monitor Lab and Test Results and Notify Provider of Abnormal Findings; Assess Nutritional Status and Promote Good Nutrition (Merly Serna RN) Outcome: Patient will Remain Free of Infection (Merly Serna RN) Status: Ongoing (Merly Serna RN) Outcome: Infection will be Recognized Early to Allow for Prompt Treatment (Merly Serna RN) Status: Ongoing (Merly Serna RN) Outcome: Patient will have Vital Signs Within Expected Range (Merly Serna RN) Status: Ongoing (Merly Serna RN) Fluid Volume State: Risk For (Merly Serna RN) Related To: Hemorrhage (Merly Serna RN) Goal(s): Patient will Achieve and Maintain a Balanced Fluid Volume Status; Hemodynamically Stable (Merly Serna RN) Interventions: Monitor Vital Signs; Auscultate Breath Sounds; Monitor Patient for Skin Turgor, Mucous Membranes, Dry Skin, Weakness, Headaches and Confusion; Provide Oral Fluids as Ordered; Initiate and Maintain Intravenous Fluids as Ordered; Monitor Intake and Output as Indicated Per Patient Status; Accurately Measure Blood Loss; Monitor Lab and Test Results as Obtained and Notify Provider of Abnormal Findings; Monitor Patient's Weight (Merly Serna RN) Outcome: Patient will have Clear Lung Sounds (Merly Serna RN) Status: Ongoing (Merly Serna RN) Outcome: Patient will have Vital Signs within Expected Range (Merly Serna RN) Status: Ongoing (Merly Serna RN) Outcome: Urine Output will be within Expected Range (Merly Serna, RN) Status: Ongoing (Merly Serna, RN) Outcome: Patient will have Minimal Generalized or Upper Extremity Edema (Merly Serna, RN) Status: Ongoing (Merly Serna RN) Injury State: Risk For (Merly Serna RN) Related To: Labor and Delivery Process; Risk to Status; Hemorrhage, Placenta Previa and or Placental Abruption (Merly Serna RN) Goal(s): Patient will Remain Free from Injury (Merly Serna RN) Interventions: Monitoring as per Hospital Protocol; Assess Neurological Status; Perform Risk Assessment of Patients with Induction and ; Perform Fall Risk Assessment and Prevention per Hospital Protocol; Perform DVT Risk Assessment and Prophylaxis per Hospital Protocol; Ensure that Oxygen, Suction, and Resuscitation Medications and Equipment are Readily Available; Confirm Patient ID Prior to Procedure(s) and Medication Administration per Hospital Policy (Merly Serna RN) Outcome: Successful Fall Risk Prevention (Merly Serna RN) Status: Ongoing (Merly Serna RN) Outcome: Patient will Deliver Infant without Adverse Sequela (Merly Serna RN) Status: Ongoing (Merly Serna RN) Outcome: Patient's Neurological Status will Remain Stable (Merly Serna RN) Status: Ongoing (Merly Serna RN) Impaired Skin Integrity State: Risk For (Merly Serna RN) Related To: Vaginal Delivery; Prolonged Bedrest; Invasive Procedures (Merly Serna RN) Goal(s): Patient will Maintain Optimal Skin Integrity, Free of Breakdown, Injury or Infection (Merly Serna RN) Interventions: Complete Screening for Pressure Ulcer Risk and Initiate Protocol per Hospital Policy; Monitor Site of Skin Impairment for Color Changes, Redness, Swelling, Warmth, Pain or Other Signs of Infection; Encourage and Assist with Position Changes; Monitor Patient's Mobility Status; Provide Adequate Nutrition and Fluids; Teach Patient Appropriate Hygienic Care; Teach Patient/Family Skin Care Management (Merly Serna, RN) Outcome: Patient will not have Evidence of Injury Such as Skin Breakdown, Scrapes, Cuts, or Bruising (Merly Serna RN) Status: Ongoing (Merly Serna RN) Outcome: Patient will Report Any Altered Sensation or Pain at Site of Skin Impairment (Merly Serna RN) Status: Ongoing (Merly Serna RN) Outcome: Patients Incisions and Wounds will be without Signs or Symptoms of Infection (Merly Serna, RN) Status: Ongoing (Merly Serna, RN) Outcome: Patient will Demonstrate Understanding of Plan to Heal Skin and Prevent Reinjury and Verbalize Risk Factors (Merly Serna, RN) Status: Ongoing (Merly Serna, RN) Parenting Impaired State: Not Applicable (Merly Serna, RN) Nutrition State: Not Applicable (Merly Serna, RN) Grieving State: Not Applicable (Merly Serna RN)
[2016-05-21 08:01] LABS: HEMATOCRIT 32.6 % (36.0-47.0); HEMOGLOBIN 10.2 g/dL (12.0-15.5); MEAN CORPUSCULAR HEMOGLOBIN 26.9 pg (27.0-33.4); MEAN CORPUSCULAR HGB CONC 31.1 g/dL (32.0-36.0); MEAN CORPUSCULAR VOLUME 86 fl (80-97); RED BLOOD COUNT 3.78 10^6/uL (3.72-5.28); RED CELL DISTRIBUTION WIDTH 13.4 % (11.5-14.0); WHITE BLOOD COUNT 10.5 10^3/uL (4.0-10.5)
[2016-05-21] MEDS: SENNOSIDES/DOCUSATE 8.6-50 MG 1 EACH TABLET PO SCH (09:06)
[2016-05-21] MEDS: PRENATAL VITAMIN W-O CA NO5/FE FUMARATE/FA CAPSULE PO SCH (09:06)
[2016-05-21] MEDS: FERROUS SULFATE 325 MG TABLET PO SCH ×2 (09:06→18:45)
[2016-05-21] MEDS: DOCUSATE SODIUM 100 MG CAPSULE PO SCH ×2 (09:06→18:45)
--- NOTE | 2016-05-21 10:57 | PDOC PROGRESS REPORT ---
Subjective-OB Subjective: Post Delivery Day: 31 year old. Denies any needs at this time. Pt doing well, no concerns. Bleeding is light and she is voiding without difficulty. No concerns. Physical Exam (OB) Vital Signs: Temp Pulse Resp BP Pulse Ox 98.3 F 68 17 113/66 100 05/21/16 08:08 05/21/16 08:08 05/21/16 08:08 05/21/16 08:08 05/21/16 08:08 Intake & Output 05/20/16 05/21/16 05/22/16 06:59 06:59 06:59 Intake Total 600 Balance 600 Weight 84.35 kg - Lochia Lochia Amount: Small 10-25 ml Lochia Color: Rubra/Red - Abdomen Description: Soft, Round Hernia Present: No Fundal Description: Firm, Midline Fundal Height: u/u - u/2 Objective-Diagnostic Laboratory: 05/21/16 07:41 05/21/16 07:41 WBC 10.5 RBC 3.78 Hgb 10.2 L Hct 32.6 L MCV 86 MCH 26.9 L MCHC 31.1 L RDW 13.4 Plt Count 332 Assessment and Plan(PN) - Assessment and Plan (1) Vaginal delivery Is this a current diagnosis for this admission?: Yes - Time Spent with Patient Time with patient: Less than 15 minutes Medications reviewed and adjusted accordingly: Yes - Disposition Anticipated Discharge: Home Within: within 24 hours
[2016-05-22] MEDS: IBUPROFEN 800 MG TABLET PO SCH (05:21)
--- NOTE | 2016-05-22 06:10 | L&D General Admission ---
General Admit Datetime Report Generated by CPN: 05/22/2016 06:00 INFORMATION Patient Age: 31 (03/18/2016 14:35:QS system process) EDC: 06/09/2016 00:00 (05/20/2016 05:38:Kayla Dickinson RN) : 5 (05/20/2016 05:38:Kayla Dickinson RN) Para: 3 (05/20/2016 05:38:Kayla Dickinson RN) Term: 3 (05/20/2016 05:38:Kayla Dickinson RN) : 0 (05/20/2016 05:38:Kayla Dickinson RN) Spontaneous Abortions: 0 (05/20/2016 05:38:Kayla Dickinson RN) Induced Abortions: 0 (05/20/2016 05:38:Kayla Dickinson RN) Livin (05/20/2016 05:38:Kayla Dickinson RN) Baby, Number in Womb: 1 (05/20/2016 05:38:Sharon Chowdary) CARE Primary Clinical Staff Anesthesiologist: [facility] (05/20/2016 05:38:Sharon Chowdary) Height (in): 70 (05/20/2016 05:45:QS system process) ALLERGIES Medication Allergy: No (05/20/2016 05:38:Sharon Epi) Medication Allergies: No Known Drug Allergies (05/20/2016) (05/20/2016 05:41:QS system process) Latex Allergy: No Latex Allergies (05/20/2016 05:38:Sharonmani Chowdary) Food Allergies: none (05/20/2016 05:38:Sharon Epi) Environmental Allergies: none (05/20/2016 05:38:Sharon Chowdary) COMMUNICATION Primary Language: Urdu (05/20/2016 05:38:Sharon Chowdary) Medical Tx Preferred Language: Urdu (05/20/2016 05:38:Sharon Chowdary) DEMOGRAPHICS Address: [address] [place] [id number] (03/18/2016 14:35:QS system process) Zipcode: [address] (03/18/2016 14:35:QS system process) Home (03/18/2016 14:35:QS system process) SSN: [id number] (03/18/2016 14:35:QS system process) Next of Kin Name: JAYASHREE ARANA (03/18/2016 14:35:QS system process) Next of Kin (03/18/2016 14:35:QS system process) Next of Kin Relationship: SPO (03/18/2016 14:35:QS system process) Date of : 1985 (03/18/2016 14:35:QS system process) Marital Status: (03/18/2016 14:35:QS system process) Sex: Female (03/18/2016 14:35:QS system process) Race: (03/18/2016 14:35:QS system process) Ethnicity: Non- or (03/18/2016 14:35:QS system process) Buddhism: Christianity (03/18/2016 14:35:QS system process) DRUG AND ALCOHOL USE Alcohol: No (05/20/2016 05:38:Sharon Chowdary) Cigarettes: Current Some Day Smoker. [id number] (05/20/2016 05:38:Merly Serna RN) Average Cigarettes Smoked: < 5 per day (05/20/2016 05:38:Merly Serna RN) Advised to Stop Smoking: Yes (05/20/2016 05:38:Merly Serna RN) Marijuana: Yes (05/20/2016 05:38:Merly Serna RN) Marijuana Use: Occasional (05/20/2016 05:38:Merly Serna RN) Marijuana Previous Treatment: None (05/20/2016 05:38:Merly Serna RN) Cocaine: No (05/20/2016 05:38:Sharonmani Chowdary) Other Illicit Drugs: No (05/20/2016 05:38:Sharon Epi) VACCINE HISTORY Influenza Vaccine: No (05/20/2016 05:38:Sharon Chowdary) Pneumococcal Vaccine: No (05/20/2016 05:38:Sharon Chowdary) Tetanus Vaccine: No (05/20/2016 05:38:Sharon Chowdary) Tdap Vaccine: No (05/20/2016 05:38:Sharon Chowdary) Hepatitis B Vaccine: No (05/20/2016 05:38:Sharon Chowdary) Human Services Instructor: [facility] (05/20/2016 05:38:Sharon Chowdary) Feeding Preference: Both (05/20/2016 05:38:Sharon Chowdary) Circumcision: Yes (05/20/2016 05:38:Sharon Chowdary) Tubal Ligation: No (05/20/2016 05:38:Sharon Chowdary) Tubal Authorization Signed: N/A (05/20/2016 05:38:Sharon Chowdary) Consent: N/A (05/20/2016 05:38:Sharon Chowdary) Consent Signed: N/A (05/20/2016 05:38:Sharon Chowdary) Pain Management Plans: None (05/20/2016 05:38:Merly Serna RN) Plans for Labor and Delivery: None (05/20/2016 05:38:Sharon Chowdary) Support Person: emanual (05/20/2016 05:38:Sharon Chowdary) Support Person Relationship: (05/20/2016 05:38:Sharon Chowdary) Cultural/Spritual Practice: N/A (05/20/2016 05:38:Sharon Chowdary) Spir/Cult Dietary Needs: N/A (05/20/2016 05:38:Sharon Chowdary) LIVING SITUATION/DISCHARGE PLAN Living Arrangements: House (05/20/2016 05:38:Sharon Chowdary) Adequate Access to:: Electric; Heat; Refrigeration; Plumbing/Running water; Phone; Transportation (05/20/2016 05:38:Sharon Chowdary) WIC Program: Yes (05/20/2016 05:38:Sharon Chowdary) Discharge Solar Installer Pv Person: samanta (05/20/2016 05:38:Sharon Chowdary) Person to Help after Discharge: marlenual (05/20/2016 05:38:Sharon Chowdary) Currently Using Commun Resources: No (05/20/2016 05:38:Sharon Chowdary) Outside Agency/Consumer Affairs Director: No (05/20/2016 05:38:Merly Serna RN) Car Seat for Discharge: Yes (05/20/2016 05:38:Sharon Chowdary) Adoption Requested: No (05/20/2016 05:38:Merly Serna RN) Pt Contact w/ Post : N/A (05/20/2016 05:38:Merly Serna RN) LABS Blood Type: B Positive (05/20/2016 05:38:Kayla Dickinson RN) Hemoglobin: 10.2 L (05/21/2016 07:41:QS system process) Hematocrit: 32.6 L (05/21/2016 07:41:QS system process) MCV: 86 (05/21/2016 07:41:QS system process) Group Beta Strep: negative (05/20/2016 05:38:Kayla Dickinson RN) Gonorrhea: Negative (05/20/2016 05:38:Kayla Dickinson RN) Chlamydia: Negative (05/20/2016 05:38:Kayla Dickinson RN) RPR/VDRL: Nonreactive (05/20/2016 05:38:Kayla Dickinson RN) HIV Results: nonreactive (05/20/2016 05:38:Kayla Dickinson RN) Hepatitis B: Negative (05/20/2016 05:38:Kayla Dickinson RN) Rubella: Immune (05/20/2016 05:38:Kayla Dickinson RN) OB/PREVIOUS HISTORY History of Previous : No (05/20/2016 05:38:Sharon Chowdary) History of Gestational Diabetes: No (05/20/2016 05:38:Sharon Chowdary) History of PIH: No (05/20/2016 05:38:Sharon Chowdary) History of Incompetent Cervix: No (05/20/2016 05:38:Sharon Chowdary) History of Placenta Previa/Abrup: No (05/20/2016 05:38:Sharon Chowdary) History of Macrosomia: No (05/20/2016 05:38:Sharon Chowdary) History of IUGR: No (05/20/2016 05:38:Sharon Chowdary) History of Hemorrhage: No (05/20/2016 05:38:Sharon Chowdary) History of Loss/Stillborn: No (05/20/2016 05:38:Sharon Chowdary) History of : No (05/20/2016 05:38:Sharon Chowdary) History of D (Rh) Sensitization: No (05/20/2016 05:38:Sharon Chowdary) History Recurrent Loss/Stillborn: No (05/20/2016 05:38:Sharon Chowdary) History Depression/PP Depression: No (05/20/2016 05:38:Sharon Chowdary) History of Uterine Anomaly/IRMA: No (05/20/2016 05:38:Sharon Chowdary) History of Infertility: No (05/20/2016 05:38:Sharon Chowdary) History of ART Treatment: No (05/20/2016 05:38:Sharon Chowdary) History of IRMA: No (05/20/2016 05:38:Sharon Chowdary) Comments Obstetrical History: 1st 2005- labor 8hrs 2nd 2007- labor 3 hrs 3rd 2012- labor 1 hr preciptous current 2016 (05/20/2016 05:38:Sharon Chowdary) MEDICAL HISTORY Med Hx Diabetes: No (05/20/2016 05:38:Sharon Chowdary) Med Hx Hypertension: No (05/20/2016 05:38:Sharon Chowdary) Med Hx Heart Disease: No (05/20/2016 05:38:Sharon Chowdary) Med Hx Autoimmune Disorder: No (05/20/2016 05:38:Sharon Chowdary) Med Hx Kidney Disease/UTI: No (05/20/2016 05:38:Sharon Chowdary) Med Hx Neurologic/Epilepsy: No (05/20/2016 05:38:Sharon Chowdary) Med Hx Psychiatric Disorders: No (05/20/2016 05:38:Sharon Chowdary) Med Hx Hepatitis/Liver Disease: No (05/20/2016 05:38:Sharon Chowdary) Med Hx Varicosities/Phlebitis: No (05/20/2016 05:38:Sharon Chowdary) Med Hx Thyroid Dysfunction: No (05/20/2016 05:38:Sharon Chowdary) Med Hx Trauma/Violence: No (05/20/2016 05:38:Sharon Chowdary) Med Hx Blood Transfusion: No (05/20/2016 05:38:Sharon Chowdary) Med Hx Pulmonary (Asthma,TB): No (05/20/2016 05:38:Sharon Chowdary) Med Hx Breast: No (05/20/2016 05:38:Sharon Chowdary) Med Hx AERIAL ERECTOR Surgery: No (05/20/2016 05:38:Sharon Chowdary) Med Hx Hospitalization/Surgery: No (05/20/2016 05:38:Sharon Chowdary) Med Hx Anesthetic Complications: No (05/20/2016 05:38:Sharon Chowdary) Med Hx Abnormal Pap Smear: No (05/20/2016 05:38:Sharon Chowdary) Other Medical Diseases: No (05/20/2016 05:38:Sharon Chowdary) Med Hx Significant Family Hx: No (05/20/2016 05:38:Sharon Chowdary) Details of Med/Surg Hx: anemia sickle cell trait (05/20/2016 05:38:Sharon Chodwary) INFECTIOUS HISTORY Inf Hx Gonorrhea: No (05/20/2016 05:38:Sharon Chowdary) Inf Hx Chlamydia: No (05/20/2016 05:38:Sharon Chowdary) Inf Hx Syphilis: No (05/20/2016 05:38:Sharon Chowdary) Inf Hx HIV/AIDS: No (05/20/2016 05:38:Sharon Chowdary) Inf Hx Human Papilloma Virus: No (05/20/2016 05:38:Sharon Chowdary) Inf Hx Pt/Partner Genital Herpes: No (05/20/2016 05:38:Sharon Chowdary) Inf Hx Tuberculosis/Exposure: No (05/20/2016 05:38:Sharon Chowdary) Inf Hx Hepatitis B,C: No (05/20/2016 05:38:Sharon Chowdary) Inf Hx Rash or Viral Illness: No (05/20/2016 05:38:Sharon Chowdary) GENETIC HISTORY Gen Hx Age >=35 at ADRY: No (05/20/2016 05:38:Sharon Chowdary) Gen Hx Thalassemia: No (05/20/2016 05:38:Sharon Chowdary) Gen Hx Congenital Heart Defect: No (05/20/2016 05:38:Sharon Chowdary) Gen Hx Neural Tube Defect: No (05/20/2016 05:38:Sharon Chowdary) Gen Hx Down's Syndrome: No (05/20/2016 05:38:Sharon Chowdary) Gen Hx Pacheco-Sachs: No (05/20/2016 05:38:Sharon Chowdary) Gen Hx Ricardo: No (05/20/2016 05:38:Sharon Chowdary) Gen Hx Familial Dysautonomia: No (05/20/2016 05:38:Sharon Chowdary) Gen Hx Sickle Cell Disease/Trait: No (05/20/2016 05:38:Sharon Chowdary) Gen Hx Hemophilia/Blood Disorder: No (05/20/2016 05:38:Sharon Chowdary) Gen Hx Muscular Dystrophy: No (05/20/2016 05:38:Sharon Chowdary) Gen Hx Cystic Fibrosis: No (05/20/2016 05:38:Sharon Chowdary) Gen Hx Huntingtons Chorea: No (05/20/2016 05:38:Sharon Chowdary) Gen Hx Mental Retardation/Autism: No (05/20/2016 05:38:Sharon Chowdary) Gen Hx Tested for Fragile X: No (05/20/2016 05:38:Sharon Chowdary) Gen Hx Other Inher/Chromosomal: No (05/20/2016 05:38:Sharon Chowdary) Gen Hx Maternal Metabolic DO: No (05/20/2016 05:38:Sharon Chowdary) Gen Hx Pt Father or FOB Defect: No (05/20/2016 05:38:Sharon Chowdary) Gen Hx Other Genetic History: No (05/20/2016 05:38:Sharon Chowdary) Gen Hx Drugs/Meds since LMP: No (05/20/2016 05:38:Sharon Chowdary)
--- NOTE | 2016-05-22 06:10 | L&D Current Admission ---
Current Admit Datetime Report Generated by CPN: 05/22/2016 06:00 ADMISSION INFORMATION Current Admit Date/Time: 05/20/2016 05:53 (05/20/2016 05:53:Sharon Chowdary) Reason for Admission: Onset of Labor (05/20/2016 05:53:Sharon Chowdary) Chief Complaint: Contractions (05/20/2016 05:54:Sharon Chowdary) EGA per Dates: 37.1 (05/20/2016 05:53:QS system process) Method of Arrival: Wheelchair (05/20/2016 05:53:Sharon Chowdary) Admitted From: Home (05/20/2016 05:53:Sharon Chowdary) Records Available: Yes (05/20/2016 05:53:Sharon Chowdary) General Admission Information: Reviewed (05/20/2016 05:53:Sharon Chowdary) BELONGINGS/ADVANCED DIRECTIVES Other Belongings: see consent sheet (05/20/2016 05:53:Sharon Chowdary) Disposition of Belongings: Kept with Patient (05/20/2016 05:53:Sharon Chowdary) Advance Direct for Healthcare: No, and Wants No Information (05/20/2016 05:53:Sharon Chowdary) Durable Power of Assistant Chief Nursing Officer: No (05/20/2016 05:53:Sharon Chowdary) Living Will: No (05/20/2016 05:53:Sharon Chowdary) Organ Donor: No (05/20/2016 05:53:Sharon Chowdary) Pt Rights Information Given: Yes (05/20/2016 05:53:Sharon Chowdary) Pt Understands Pt Rights: Yes (05/20/2016 05:53:Sharon Chowdary) Patient Rights Comments: patient access (05/20/2016 05:53:Sharon Chowdary) LEARNING ASSESSMENT Knowledge Level: Understands L_D Process (05/20/2016 05:53:Sharon Chowdary) Barriers to Learning: None (05/20/2016 05:53:Sharon Chowdary) Learning Readiness: Motivated (05/20/2016 05:53:Sharon Chowdary) Learns Best By: 1 to 1 Instruction (05/20/2016 05:53:Sharon Chowdary) Learning Needs: Labor and Delivery Process; Pain Management; Symptoms to Report; Treatment Plan; Medication (05/20/2016 05:53:Sharon Chowdary) DOMESTIC VIOLANCE SCREENING Dom Viol Threatened/Hurt: No (05/20/2016 05:53:Sharonmani Chowdary) Hx of Abuse/Neglect past 2yrs: No (05/20/2016 05:53:Sharon Chowdary) Feel Unsafe Going Home: No (05/20/2016 05:53:Sharon Epi) Addt'l Observ Indicating Abuse: No (05/20/2016 05:53:Sharonmani Chowdary) Reason Unable to Complete Screen: N/A, Screen Completed (05/20/2016 05:53:Sharon Chowdary) Considered Personal Harm/Suicide: No (05/20/2016 05:53:Sharon Chowdary) NUTRITIONAL/FUNCTIONAL SCREENING Problem with Appetite >5 Days: No (05/20/2016 05:53:Sharon Chowdary) Chew/Swallow Difficulties: No (05/20/2016 05:53:Sharon Chowdary) Inappropriate Wt Gain/Loss: No (05/20/2016 05:53:Sharonmani Chowdary) Presence Skin Breakdown/Ulcer: No (05/20/2016 05:53:Sharon Chowdary) Special Diet: No (05/20/2016 05:53:Sharon Chowdary) Pt Requests Certified Medical Transcriptionist Visit: No (05/20/2016 05:53:Sharon Chowdary) Hx of Any of the Following?: N/A (05/20/2016 05:53:Sharon Chowdary) New Diagnosis of: N/A (05/20/2016 05:53:Sharon Chowdary) Requires Assist w/Ambulation: No (05/20/2016 05:53:Sharon Chowdary) Uses Assist Device to Ambulate: No (05/20/2016 05:53:Sharon Chowdary) Pt Requires Help w/ADL's: No (05/20/2016 05:53:Sharon Chowdary)
[2016-05-22] MEDS: PRENATAL VITAMIN W-O CA NO5/FE FUMARATE/FA CAPSULE PO SCH (09:31)
[2016-05-22] MEDS: SENNOSIDES/DOCUSATE 8.6-50 MG 1 EACH TABLET PO SCH (09:32)
[2016-05-22] MEDS: DOCUSATE SODIUM 100 MG CAPSULE PO SCH (09:32)
[2016-05-22] MEDS: FERROUS SULFATE 325 MG TABLET PO SCH (09:32)
[2016-05-22 11:02] VITALS: BP 122/74
--- NOTE | 2016-05-22 11:04 | PDOC DISCHARGE SUMMARY ---
Discharge Summary-OB Discharge Date: 05/22/16 - Final Diagnosis (1) Vaginal delivery Is this a current diagnosis for this admission?: Yes - Discharge Medication Home Medications: Iron 1 tab PO DAILY 05/20/16 Vit/Iron Fumarate/FA [ Tablet] 1 tab PO DAILY 05/20/16 Azithromycin [Zithromax 250 mg Tablet] 250 mg PO ASDIR PRN #6 tablet 05/22/16 Docusate Sodium [Colace 100 mg Capsule] 100 mg PO BID #60 capsule 05/22/16 Ferrous Sulfate [Feosol 325 mg Tablet] 325 mg PO BID #30 tablet 05/22/16 Ibuprofen [Motrin 800 mg Tablet] 800 mg PO Q8 #60 tablet 05/22/16 Reason(s) for Admission: Onset of Labor Procedures: NST Intrapartum Procedure(s): Spontaneous Vaginal Delivery - Diagnosis Test Laboratory: Temp Pulse Resp BP Pulse Ox 98.2 F 98 18 122/74 100 05/22/16 10:57 05/22/16 10:57 05/22/16 10:57 05/22/16 10:57 05/22/16 10:57 05/20/16 05/20/16 05/21/16 06:03 13:45 07:41 RBC 3.79 3.78 Hgb 10.4 L 10.2 L Hct 31.6 L 32.6 L Urine Opiates Screen UNCONFIRMED POSITIVE - Discharge information/Instructions Discharge Activity: Activity As Tolerated, Pelvic Rest Discharge Diet: Regular Disposition: HOME, SELF-CARE Follow up with: [facility] in: 4, Weeks
--- NOTE | 2016-05-23 06:10 | L&D General Admission ---
General Admit Datetime Report Generated by CPN: 05/23/2016 06:00 INFORMATION Patient Age: 31 (03/18/2016 14:35:QS system process) EDC: 06/09/2016 00:00 (05/20/2016 05:38:Kayla Dickinson RN) : 5 (05/20/2016 05:38:Kayla Dickinson RN) Para: 3 (05/20/2016 05:38:Kayla Dickinson RN) Term: 3 (05/20/2016 05:38:Kayla Dickinson RN) : 0 (05/20/2016 05:38:Kayla Dickinson RN) Spontaneous Abortions: 0 (05/20/2016 05:38:Kayla Dickinson RN) Induced Abortions: 0 (05/20/2016 05:38:Kayla Dickinson RN) Livin (05/20/2016 05:38:Kayla Dickinson RN) Baby, Number in Womb: 1 (05/20/2016 05:38:Sharon Chowdary) CARE Primary Rare/Endangered Species Specialist: [facility] (05/20/2016 05:38:Sharon Chowdary) Height (in): 70 (05/20/2016 05:45:QS system process) ALLERGIES Medication Allergy: No (05/20/2016 05:38:Sharon Epi) Medication Allergies: No Known Drug Allergies (05/20/2016) (05/20/2016 05:41:QS system process) Latex Allergy: No Latex Allergies (05/20/2016 05:38:Sharonmani Chowdary) Food Allergies: none (05/20/2016 05:38:Sharon Epi) Environmental Allergies: none (05/20/2016 05:38:Sharon Chowdary) COMMUNICATION Primary Language: Vietnamese (05/20/2016 05:38:Sharon Chowdary) Medical Tx Preferred Language: Vietnamese (05/20/2016 05:38:Sharon Chowdary) DEMOGRAPHICS Address: [address] [place] [id number] (03/18/2016 14:35:QS system process) Zipcode: [phone] (03/18/2016 14:35:QS system process) Home (03/18/2016 14:35:QS system process) SSN: [id number] (03/18/2016 14:35:QS system process) Next of Kin Name: JAYASHREE ARANA (03/18/2016 14:35:QS system process) Next of Kin (03/18/2016 14:35:QS system process) Next of Kin Relationship: SPO (03/18/2016 14:35:QS system process) Date of : 1985 (03/18/2016 14:35:QS system process) Marital Status: (03/18/2016 14:35:QS system process) Sex: Female (03/18/2016 14:35:QS system process) Race: (03/18/2016 14:35:QS system process) Ethnicity: Non- or (03/18/2016 14:35:QS system process) Buddhist: Congregational (03/18/2016 14:35:QS system process) DRUG AND ALCOHOL USE Alcohol: No (05/20/2016 05:38:Sharon Chowdary) Cigarettes: Current Some Day Smoker. [id number] (05/20/2016 05:38:Merly Serna RN) Average Cigarettes Smoked: < 5 per day (05/20/2016 05:38:Merly Serna RN) Advised to Stop Smoking: Yes (05/20/2016 05:38:Merly Serna RN) Marijuana: Yes (05/20/2016 05:38:Merly Serna RN) Marijuana Use: Occasional (05/20/2016 05:38:Merly Serna RN) Marijuana Previous Treatment: None (05/20/2016 05:38:Merly Serna RN) Cocaine: No (05/20/2016 05:38:Sharonmani Chowdary) Other Illicit Drugs: No (05/20/2016 05:38:Sharon Epi) VACCINE HISTORY Influenza Vaccine: No (05/20/2016 05:38:Sharon Chowdary) Pneumococcal Vaccine: No (05/20/2016 05:38:Sharon Chowdary) Tetanus Vaccine: No (05/20/2016 05:38:Sharon Chowdary) Tdap Vaccine: No (05/20/2016 05:38:Sharon Chowdary) Hepatitis B Vaccine: No (05/20/2016 05:38:Sharon Chowdary) Film Examiner: [facility] (05/20/2016 05:38:Sharon Chowdary) Feeding Preference: Both (05/20/2016 05:38:Sharon Chowdary) Circumcision: Yes (05/20/2016 05:38:Sharon Chowdary) Tubal Ligation: No (05/20/2016 05:38:Sharno Chowdary) Tubal Authorization Signed: N/A (05/20/2016 05:38:Sharon Chowdary) Consent: N/A (05/20/2016 05:38:Sharon Chowdary) Consent Signed: N/A (05/20/2016 05:38:Sharon Chowdary) Pain Management Plans: None (05/20/2016 05:38:Merly Serna RN) Plans for Labor and Delivery: None (05/20/2016 05:38:Sharon Chowdary) Support Person: emanual (05/20/2016 05:38:Sharon Chowdary) Support Person Relationship: (05/20/2016 05:38:Sharon Chowdary) Cultural/Spritual Practice: N/A (05/20/2016 05:38:Sharon Chowdary) Spir/Cult Dietary Needs: N/A (05/20/2016 05:38:Sharon Chowdary) LIVING SITUATION/DISCHARGE PLAN Living Arrangements: House (05/20/2016 05:38:Sharon Chowdary) Adequate Access to:: Electric; Heat; Refrigeration; Plumbing/Running water; Phone; Transportation (05/20/2016 05:38:Sharon Chowdary) WIC Program: Yes (05/20/2016 05:38:Sharon Chowdary) Discharge Freelance Web Designer Person: samanta (05/20/2016 05:38:Sharon Chowdary) Person to Help after Discharge: marlenual (05/20/2016 05:38:Sharon Chowdary) Currently Using Commun Resources: No (05/20/2016 05:38:Sharon Chowdary) Outside Agency/Erosion Control Specialist: No (05/20/2016 05:38:Merly Serna RN) Car Seat for Discharge: Yes (05/20/2016 05:38:Sharon Chowdary) Adoption Requested: No (05/20/2016 05:38:Merly Serna RN) Pt Contact w/ Post : N/A (05/20/2016 05:38:Merly Serna RN) LABS Blood Type: B Positive (05/20/2016 05:38:Kayla Dickinson RN) Hemoglobin: 10.2 L (05/21/2016 07:41:QS system process) Hematocrit: 32.6 L (05/21/2016 07:41:QS system process) MCV: 86 (05/21/2016 07:41:QS system process) Group Beta Strep: negative (05/20/2016 05:38:Kayla Dickinson RN) Gonorrhea: Negative (05/20/2016 05:38:Kayla Dickinson RN) Chlamydia: Negative (05/20/2016 05:38:Kayla Dickinson RN) RPR/VDRL: Nonreactive (05/20/2016 05:38:Kayla Dickinson RN) HIV Results: nonreactive (05/20/2016 05:38:Kayla Dickinson RN) Hepatitis B: Negative (05/20/2016 05:38:Kayla Dickinson RN) Rubella: Immune (05/20/2016 05:38:Kayla Dickinson RN) OB/PREVIOUS HISTORY History of Previous : No (05/20/2016 05:38:Sharon Chowdary) History of Gestational Diabetes: No (05/20/2016 05:38:Sharon Chowdary) History of PIH: No (05/20/2016 05:38:Sharon Chowdary) History of Incompetent Cervix: No (05/20/2016 05:38:Sharon Chowdary) History of Placenta Previa/Abrup: No (05/20/2016 05:38:Sharon Chowdary) History of Macrosomia: No (05/20/2016 05:38:Sharon Chowdary) History of IUGR: No (05/20/2016 05:38:Sharon Chowdary) History of Hemorrhage: No (05/20/2016 05:38:Sharon Chowdary) History of Loss/Stillborn: No (05/20/2016 05:38:Sharon Chowdary) History of : No (05/20/2016 05:38:Sharon Chowdary) History of D (Rh) Sensitization: No (05/20/2016 05:38:Sharon Chowdary) History Recurrent Loss/Stillborn: No (05/20/2016 05:38:Sharon Chowdary) History Depression/PP Depression: No (05/20/2016 05:38:Sharon Chowdary) History of Uterine Anomaly/IRMA: No (05/20/2016 05:38:Sharon Chowdary) History of Infertility: No (05/20/2016 05:38:Sharon Chowdary) History of ART Treatment: No (05/20/2016 05:38:Sharon Chowdary) History of IRMA: No (05/20/2016 05:38:Sharon Chowdary) Comments Obstetrical History: 1st 2005- labor 8hrs 2nd 2007- labor 3 hrs 3rd 2012- labor 1 hr preciptous current 2016 (05/20/2016 05:38:Sharon Chowdary) MEDICAL HISTORY Med Hx Diabetes: No (05/20/2016 05:38:Sharon Chowdary) Med Hx Hypertension: No (05/20/2016 05:38:Sharon Chowdary) Med Hx Heart Disease: No (05/20/2016 05:38:Sharon Chowdary) Med Hx Autoimmune Disorder: No (05/20/2016 05:38:Sharon Chowdary) Med Hx Kidney Disease/UTI: No (05/20/2016 05:38:Sharon Chowdary) Med Hx Neurologic/Epilepsy: No (05/20/2016 05:38:Sharon Chowdary) Med Hx Psychiatric Disorders: No (05/20/2016 05:38:Sharon Chowdary) Med Hx Hepatitis/Liver Disease: No (05/20/2016 05:38:Sharon Chowdary) Med Hx Varicosities/Phlebitis: No (05/20/2016 05:38:Sharon Chowdary) Med Hx Thyroid Dysfunction: No (05/20/2016 05:38:Sharon Chowdary) Med Hx Trauma/Violence: No (05/20/2016 05:38:Sharon Chowdary) Med Hx Blood Transfusion: No (05/20/2016 05:38:Sharon Chowdary) Med Hx Pulmonary (Asthma,TB): No (05/20/2016 05:38:Sharon Chowdary) Med Hx Breast: No (05/20/2016 05:38:Sharon Chowdary) Med Hx FRAME OPENER Surgery: No (05/20/2016 05:38:Sharon Chowdary) Med Hx Hospitalization/Surgery: No (05/20/2016 05:38:Sharon Chowdary) Med Hx Anesthetic Complications: No (05/20/2016 05:38:Sharon Chowdary) Med Hx Abnormal Pap Smear: No (05/20/2016 05:38:Sharon Chowdary) Other Medical Diseases: No (05/20/2016 05:38:Sharon Chowdary) Med Hx Significant Family Hx: No (05/20/2016 05:38:Sharon Chowdary) Details of Med/Surg Hx: anemia sickle cell trait (05/20/2016 05:38:Sharon Chowdary) INFECTIOUS HISTORY Inf Hx Gonorrhea: No (05/20/2016 05:38:Sharon Chowdary) Inf Hx Chlamydia: No (05/20/2016 05:38:Sharon Chowdary) Inf Hx Syphilis: No (05/20/2016 05:38:Sharon Chowdary) Inf Hx HIV/AIDS: No (05/20/2016 05:38:Sharon Chowdary) Inf Hx Human Papilloma Virus: No (05/20/2016 05:38:Sharon Chowdary) Inf Hx Pt/Partner Genital Herpes: No (05/20/2016 05:38:Sharon Chowdary) Inf Hx Tuberculosis/Exposure: No (05/20/2016 05:38:Sharon Chowdary) Inf Hx Hepatitis B,C: No (05/20/2016 05:38:Sharon Chowdary) Inf Hx Rash or Viral Illness: No (05/20/2016 05:38:Sharon Chowdary) GENETIC HISTORY Gen Hx Age >=35 at ADRY: No (05/20/2016 05:38:Sharon Chowdary) Gen Hx Thalassemia: No (05/20/2016 05:38:Sharon Chowdary) Gen Hx Congenital Heart Defect: No (05/20/2016 05:38:Sharon Chowdary) Gen Hx Neural Tube Defect: No (05/20/2016 05:38:Sharon Chowdary) Gen Hx Down's Syndrome: No (05/20/2016 05:38:Sharon Chowdary) Gen Hx Pacheco-Sachs: No (05/20/2016 05:38:Sharon Chowdary) Gen Hx Ricardo: No (05/20/2016 05:38:Sharon Chowdary) Gen Hx Familial Dysautonomia: No (05/20/2016 05:38:Sharon Chowdary) Gen Hx Sickle Cell Disease/Trait: No (05/20/2016 05:38:Sharon Chowdary) Gen Hx Hemophilia/Blood Disorder: No (05/20/2016 05:38:Sharon Chowdary) Gen Hx Muscular Dystrophy: No (05/20/2016 05:38:Sharon Chowdary) Gen Hx Cystic Fibrosis: No (05/20/2016 05:38:Sharon Chowdary) Gen Hx Huntingtons Chorea: No (05/20/2016 05:38:Sharon Chowdary) Gen Hx Mental Retardation/Autism: No (05/20/2016 05:38:Sharon Chowdary) Gen Hx Tested for Fragile X: No (05/20/2016 05:38:Sharon Chowdary) Gen Hx Other Inher/Chromosomal: No (05/20/2016 05:38:Sharon Chowdary) Gen Hx Maternal Metabolic DO: No (05/20/2016 05:38:Sharon Chowdary) Gen Hx Pt Father or FOB Defect: No (05/20/2016 05:38:Sharon Chowdary) Gen Hx Other Genetic History: No (05/20/2016 05:38:Sharon Chowdary) Gen Hx Drugs/Meds since LMP: No (05/20/2016 05:38:Sharon Chowdary)
--- NOTE | 2016-05-23 06:10 | L&D Current Admission ---
Current Admit Datetime Report Generated by CPN: 05/23/2016 06:00 ADMISSION INFORMATION Current Admit Date/Time: 05/20/2016 05:53 (05/20/2016 05:53:Sharon Chowdary) Reason for Admission: Onset of Labor (05/20/2016 05:53:Sharon Chowdary) Chief Complaint: Contractions (05/20/2016 05:54:Sharon Chowdary) EGA per Dates: 37.1 (05/20/2016 05:53:QS system process) Method of Arrival: Wheelchair (05/20/2016 05:53:Sharon Chowdary) Admitted From: Home (05/20/2016 05:53:Sharon Chowdary) Records Available: Yes (05/20/2016 05:53:Sharon Chowdary) General Admission Information: Reviewed (05/20/2016 05:53:Sharon Chowdary) BELONGINGS/ADVANCED DIRECTIVES Other Belongings: see consent sheet (05/20/2016 05:53:Sharon Chowdary) Disposition of Belongings: Kept with Patient (05/20/2016 05:53:Sharon Chowdary) Advance Direct for Healthcare: No, and Wants No Information (05/20/2016 05:53:Sharon Chowdary) Durable Power of Relay Technician: No (05/20/2016 05:53:Sharon Chowdary) Living Will: No (05/20/2016 05:53:Sharon Chowdary) Organ Donor: No (05/20/2016 05:53:Sharon Chowdary) Pt Rights Information Given: Yes (05/20/2016 05:53:Sharon Chowdary) Pt Understands Pt Rights: Yes (05/20/2016 05:53:Sharon Chowadry) Patient Rights Comments: patient access (05/20/2016 05:53:Sharon Chowdary) LEARNING ASSESSMENT Knowledge Level: Understands L_D Process (05/20/2016 05:53:Sharon Chowdary) Barriers to Learning: None (05/20/2016 05:53:Sharon Chowdary) Learning Readiness: Motivated (05/20/2016 05:53:Sharon Chowdary) Learns Best By: 1 to 1 Instruction (05/20/2016 05:53:Sharon Chowdary) Learning Needs: Labor and Delivery Process; Pain Management; Symptoms to Report; Treatment Plan; Medication (05/20/2016 05:53:Sharon Chowdary) DOMESTIC VIOLANCE SCREENING Dom Viol Threatened/Hurt: No (05/20/2016 05:53:Sharonmani Chowdary) Hx of Abuse/Neglect past 2yrs: No (05/20/2016 05:53:Sharon Chowdary) Feel Unsafe Going Home: No (05/20/2016 05:53:Sharon Epi) Addt'l Observ Indicating Abuse: No (05/20/2016 05:53:Sharonmani Chowdary) Reason Unable to Complete Screen: N/A, Screen Completed (05/20/2016 05:53:Sharon Chowdary) Considered Personal Harm/Suicide: No (05/20/2016 05:53:Sharon Chowdary) NUTRITIONAL/FUNCTIONAL SCREENING Problem with Appetite >5 Days: No (05/20/2016 05:53:Sharon Chowdary) Chew/Swallow Difficulties: No (05/20/2016 05:53:Sharon Chowdary) Inappropriate Wt Gain/Loss: No (05/20/2016 05:53:Sharonmani Chowdary) Presence Skin Breakdown/Ulcer: No (05/20/2016 05:53:Sharon Chowdary) Special Diet: No (05/20/2016 05:53:Sharon Chowdary) Pt Requests Brood Station Manager Visit: No (05/20/2016 05:53:Sharon Chowdary) Hx of Any of the Following?: N/A (05/20/2016 05:53:Sharon Chowdary) New Diagnosis of: N/A (05/20/2016 05:53:Sharon Chowdary) Requires Assist w/Ambulation: No (05/20/2016 05:53:Sharon Chowdary) Uses Assist Device to Ambulate: No (05/20/2016 05:53:Sharon Chowdary) Pt Requires Help w/ADL's: No (05/20/2016 05:53:Sharon Chowdary)
--- NOTE | 2016-05-24 06:10 | L&D Current Admission ---
Current Admit Datetime Report Generated by CPN: 05/24/2016 06:00 ADMISSION INFORMATION Current Admit Date/Time: 05/20/2016 05:53 (05/20/2016 05:53:Sharon Chowdary) Reason for Admission: Onset of Labor (05/20/2016 05:53:Sharon Chowdary) Chief Complaint: Contractions (05/20/2016 05:54:Sharon Chwodary) EGA per Dates: 37.1 (05/20/2016 05:53:QS system process) Method of Arrival: Wheelchair (05/20/2016 05:53:Sharon Chowdary) Admitted From: Home (05/20/2016 05:53:Sharon Chowdary) Records Available: Yes (05/20/2016 05:53:Sharon Chowdary) General Admission Information: Reviewed (05/20/2016 05:53:Sharon Chowdary) BELONGINGS/ADVANCED DIRECTIVES Other Belongings: see consent sheet (05/20/2016 05:53:Sharon Chowdary) Disposition of Belongings: Kept with Patient (05/20/2016 05:53:Sharon Chowdary) Advance Direct for Healthcare: No, and Wants No Information (05/20/2016 05:53:Sharon Chowdary) Durable Power of Cable Installation Technician: No (05/20/2016 05:53:Sharon Chowdary) Living Will: No (05/20/2016 05:53:Sharon Chowdary) Organ Donor: No (05/20/2016 05:53:Sharon Chowdary) Pt Rights Information Given: Yes (05/20/2016 05:53:Sharon Chowdary) Pt Understands Pt Rights: Yes (05/20/2016 05:53:Sharon Chowdary) Patient Rights Comments: patient access (05/20/2016 05:53:Sharon Chowdary) LEARNING ASSESSMENT Knowledge Level: Understands L_D Process (05/20/2016 05:53:Sharon Chowdary) Barriers to Learning: None (05/20/2016 05:53:Sharon Chowdary) Learning Readiness: Motivated (05/20/2016 05:53:Sharon Chowdary) Learns Best By: 1 to 1 Instruction (05/20/2016 05:53:Sharon Chowdary) Learning Needs: Labor and Delivery Process; Pain Management; Symptoms to Report; Treatment Plan; Medication (05/20/2016 05:53:Sharon Chowdary) DOMESTIC VIOLANCE SCREENING Dom Viol Threatened/Hurt: No (05/20/2016 05:53:Sharonmani Chowdary) Hx of Abuse/Neglect past 2yrs: No (05/20/2016 05:53:Sharon Chowdary) Feel Unsafe Going Home: No (05/20/2016 05:53:Sharon Epi) Addt'l Observ Indicating Abuse: No (05/20/2016 05:53:Sharonmani Chowdary) Reason Unable to Complete Screen: N/A, Screen Completed (05/20/2016 05:53:Sharon Chowdary) Considered Personal Harm/Suicide: No (05/20/2016 05:53:Sharon Chowdary) NUTRITIONAL/FUNCTIONAL SCREENING Problem with Appetite >5 Days: No (05/20/2016 05:53:Sharon Chowdary) Chew/Swallow Difficulties: No (05/20/2016 05:53:Sharon Chowdary) Inappropriate Wt Gain/Loss: No (05/20/2016 05:53:Sharonmani Chowdary) Presence Skin Breakdown/Ulcer: No (05/20/2016 05:53:Sharon Chowdary) Special Diet: No (05/20/2016 05:53:Sharon Chowdary) Pt Requests Insole Reinforcer Visit: No (05/20/2016 05:53:Sharon Chowdary) Hx of Any of the Following?: N/A (05/20/2016 05:53:Sharon Chowdary) New Diagnosis of: N/A (05/20/2016 05:53:Sharon Chowdary) Requires Assist w/Ambulation: No (05/20/2016 05:53:Sharon Chowdary) Uses Assist Device to Ambulate: No (05/20/2016 05:53:Sharon Chowdary) Pt Requires Help w/ADL's: No (05/20/2016 05:53:Sharon Chowdary)
--- NOTE | 2016-05-24 06:10 | L&D General Admission ---
General Admit Datetime Report Generated by CPN: 05/24/2016 06:00 INFORMATION Patient Age: 31 (03/18/2016 14:35:QS system process) EDC: 06/09/2016 00:00 (05/20/2016 05:38:Kayla Dickinson RN) : 5 (05/20/2016 05:38:Kayla Dickinson RN) Para: 3 (05/20/2016 05:38:Kayla Dickinson RN) Term: 3 (05/20/2016 05:38:Kayla Dickinson RN) : 0 (05/20/2016 05:38:Kayla Dickinson RN) Spontaneous Abortions: 0 (05/20/2016 05:38:Kayla Dickinson RN) Induced Abortions: 0 (05/20/2016 05:38:Kayla Dickinson RN) Livin (05/20/2016 05:38:Kayla Dickinson RN) Baby, Number in Womb: 1 (05/20/2016 05:38:Sharon Chowdary) CARE Primary Rental Agent: [facility] (05/20/2016 05:38:Sharon Chowdary) Height (in): 70 (05/20/2016 05:45:QS system process) ALLERGIES Medication Allergy: No (05/20/2016 05:38:Sharon Epi) Medication Allergies: No Known Drug Allergies (05/20/2016) (05/20/2016 05:41:QS system process) Latex Allergy: No Latex Allergies (05/20/2016 05:38:Sharonmani Chowdary) Food Allergies: none (05/20/2016 05:38:Sharon Epi) Environmental Allergies: none (05/20/2016 05:38:Sharon Chowdary) COMMUNICATION Primary Language: Danish (05/20/2016 05:38:Sharon Chowdary) Medical Tx Preferred Language: Danish (05/20/2016 05:38:Sharon Chowdary) DEMOGRAPHICS Address: [address] [place] [id number] (03/18/2016 14:35:QS system process) Zipcode: [address] (03/18/2016 14:35:QS system process) Home (03/18/2016 14:35:QS system process) SSN: [id number] (03/18/2016 14:35:QS system process) Next of Kin Name: JAYASHREE ARANA (03/18/2016 14:35:QS system process) Next of Kin (03/18/2016 14:35:QS system process) Next of Kin Relationship: SPO (03/18/2016 14:35:QS system process) Date of : 1985 (03/18/2016 14:35:QS system process) Marital Status: (03/18/2016 14:35:QS system process) Sex: Female (03/18/2016 14:35:QS system process) Race: (03/18/2016 14:35:QS system process) Ethnicity: Non- or (03/18/2016 14:35:QS system process) Sikhism: Faith (03/18/2016 14:35:QS system process) DRUG AND ALCOHOL USE Alcohol: No (05/20/2016 05:38:Sharon Chowdary) Cigarettes: Current Some Day Smoker. [id number] (05/20/2016 05:38:Merly Serna RN) Average Cigarettes Smoked: < 5 per day (05/20/2016 05:38:Merly Serna RN) Advised to Stop Smoking: Yes (05/20/2016 05:38:Merly Serna RN) Marijuana: Yes (05/20/2016 05:38:Merly Serna RN) Marijuana Use: Occasional (05/20/2016 05:38:Merly Serna RN) Marijuana Previous Treatment: None (05/20/2016 05:38:Merly Serna RN) Cocaine: No (05/20/2016 05:38:Hsaronmani Chowdary) Other Illicit Drugs: No (05/20/2016 05:38:Sharon Epi) VACCINE HISTORY Influenza Vaccine: No (05/20/2016 05:38:Sharon Chowdary) Pneumococcal Vaccine: No (05/20/2016 05:38:Sharon Chowdary) Tetanus Vaccine: No (05/20/2016 05:38:Sharon Chowdary) Tdap Vaccine: No (05/20/2016 05:38:Sharon Chowdary) Hepatitis B Vaccine: No (05/20/2016 05:38:Sharon Chowdary) Radiation Therapist: [facility] (05/20/2016 05:38:Sharon Chowdary) Feeding Preference: Both (05/20/2016 05:38:Sharon Chowdary) Circumcision: Yes (05/20/2016 05:38:Sharon Chowdary) Tubal Ligation: No (05/20/2016 05:38:Sharon Chowdary) Tubal Authorization Signed: N/A (05/20/2016 05:38:Sharon Chowdary) Consent: N/A (05/20/2016 05:38:Sharon Chowdary) Consent Signed: N/A (05/20/2016 05:38:Sharon Chowdary) Pain Management Plans: None (05/20/2016 05:38:Merly Serna RN) Plans for Labor and Delivery: None (05/20/2016 05:38:Sharon Chowdary) Support Person: emanual (05/20/2016 05:38:Sharon Chowdary) Support Person Relationship: (05/20/2016 05:38:Sharon Chowdary) Cultural/Spritual Practice: N/A (05/20/2016 05:38:Sharon Chowdary) Spir/Cult Dietary Needs: N/A (05/20/2016 05:38:Sharon Chowdary) LIVING SITUATION/DISCHARGE PLAN Living Arrangements: House (05/20/2016 05:38:Sharon Chowdary) Adequate Access to:: Electric; Heat; Refrigeration; Plumbing/Running water; Phone; Transportation (05/20/2016 05:38:Sharon Chowdary) WIC Program: Yes (05/20/2016 05:38:Sharon Chowdary) Discharge Senior Business Process Analyst Person: samanta (05/20/2016 05:38:Sharon Chowdary) Person to Help after Discharge: marlenual (05/20/2016 05:38:Sharon Chowdary) Currently Using Commun Resources: No (05/20/2016 05:38:Sharon Chowdray) Outside Agency/Critical Care Technician: No (05/20/2016 05:38:Merly Serna RN) Car Seat for Discharge: Yes (05/20/2016 05:38:Sharon Chowdary) Adoption Requested: No (05/20/2016 05:38:Merly Serna RN) Pt Contact w/ Post : N/A (05/20/2016 05:38:Merly Serna RN) LABS Blood Type: B Positive (05/20/2016 05:38:Kayla Dickinson RN) Hemoglobin: 10.2 L (05/21/2016 07:41:QS system process) Hematocrit: 32.6 L (05/21/2016 07:41:QS system process) MCV: 86 (05/21/2016 07:41:QS system process) Group Beta Strep: negative (05/20/2016 05:38:Kayla Dickinson RN) Gonorrhea: Negative (05/20/2016 05:38:Kayla Dickinson RN) Chlamydia: Negative (05/20/2016 05:38:Kayla Dickinson RN) RPR/VDRL: Nonreactive (05/20/2016 05:38:Kayla Dickinson RN) HIV Results: nonreactive (05/20/2016 05:38:Kayla Dickinson RN) Hepatitis B: Negative (05/20/2016 05:38:Kayla Dickinson RN) Rubella: Immune (05/20/2016 05:38:Kayla Dickinson RN) OB/PREVIOUS HISTORY History of Previous : No (05/20/2016 05:38:Sharon Chowdary) History of Gestational Diabetes: No (05/20/2016 05:38:Sharon Chowdary) History of PIH: No (05/20/2016 05:38:Sharon Chowdary) History of Incompetent Cervix: No (05/20/2016 05:38:Sharon Chowdary) History of Placenta Previa/Abrup: No (05/20/2016 05:38:Sharon Chowdary) History of Macrosomia: No (05/20/2016 05:38:Sharon Chowdary) History of IUGR: No (05/20/2016 05:38:Sharon Chowdary) History of Hemorrhage: No (05/20/2016 05:38:Sharon Chowdary) History of Loss/Stillborn: No (05/20/2016 05:38:Sharon Chowdary) History of : No (05/20/2016 05:38:Sharon Chowdary) History of D (Rh) Sensitization: No (05/20/2016 05:38:Sharon Chowdary) History Recurrent Loss/Stillborn: No (05/20/2016 05:38:Sharon Chowdary) History Depression/PP Depression: No (05/20/2016 05:38:Sharon Chowdary) History of Uterine Anomaly/IRMA: No (05/20/2016 05:38:Sharon Chowdary) History of Infertility: No (05/20/2016 05:38:Sharon Chowdary) History of ART Treatment: No (05/20/2016 05:38:Sharon Chowdary) History of IRMA: No (05/20/2016 05:38:Sharon Chowdary) Comments Obstetrical History: 1st 2005- labor 8hrs 2nd 2007- labor 3 hrs 3rd 2012- labor 1 hr preciptous current 2016 (05/20/2016 05:38:Sharon Chowdary) MEDICAL HISTORY Med Hx Diabetes: No (05/20/2016 05:38:Sharon Chowdary) Med Hx Hypertension: No (05/20/2016 05:38:Sharon Chowdary) Med Hx Heart Disease: No (05/20/2016 05:38:Sharon Chowdary) Med Hx Autoimmune Disorder: No (05/20/2016 05:38:Sharon Chowdary) Med Hx Kidney Disease/UTI: No (05/20/2016 05:38:Sharon Chowdary) Med Hx Neurologic/Epilepsy: No (05/20/2016 05:38:Sharon Chowdary) Med Hx Psychiatric Disorders: No (05/20/2016 05:38:Sharon Chowdary) Med Hx Hepatitis/Liver Disease: No (05/20/2016 05:38:Sharon Chowdary) Med Hx Varicosities/Phlebitis: No (05/20/2016 05:38:Sharon Chowdary) Med Hx Thyroid Dysfunction: No (05/20/2016 05:38:Sharon Chowdary) Med Hx Trauma/Violence: No (05/20/2016 05:38:Sharon Chowdary) Med Hx Blood Transfusion: No (05/20/2016 05:38:hSaron Chowdary) Med Hx Pulmonary (Asthma,TB): No (05/20/2016 05:38:Sharon Chowdary) Med Hx Breast: No (05/20/2016 05:38:Sharon Chowdary) Med Hx HEMATOLOGIST Surgery: No (05/20/2016 05:38:Sharon Chowdary) Med Hx Hospitalization/Surgery: No (05/20/2016 05:38:Sharon Chowdary) Med Hx Anesthetic Complications: No (05/20/2016 05:38:Sharon Chowdary) Med Hx Abnormal Pap Smear: No (05/20/2016 05:38:Sharon Chowdary) Other Medical Diseases: No (05/20/2016 05:38:Sharon Chowdary) Med Hx Significant Family Hx: No (05/20/2016 05:38:Sharon Chowdary) Details of Med/Surg Hx: anemia sickle cell trait (05/20/2016 05:38:Sharon Chowdary) INFECTIOUS HISTORY Inf Hx Gonorrhea: No (05/20/2016 05:38:Sharon Chowdary) Inf Hx Chlamydia: No (05/20/2016 05:38:Sharon Chowdary) Inf Hx Syphilis: No (05/20/2016 05:38:Sharon Chowdary) Inf Hx HIV/AIDS: No (05/20/2016 05:38:Sharon Chowdary) Inf Hx Human Papilloma Virus: No (05/20/2016 05:38:Sharon Chowdary) Inf Hx Pt/Partner Genital Herpes: No (05/20/2016 05:38:Sharon Chowdary) Inf Hx Tuberculosis/Exposure: No (05/20/2016 05:38:Sharon Chowdary) Inf Hx Hepatitis B,C: No (05/20/2016 05:38:Sharon Chowdary) Inf Hx Rash or Viral Illness: No (05/20/2016 05:38:Sharon Chowdary) GENETIC HISTORY Gen Hx Age >=35 at ADRY: No (05/20/2016 05:38:Sharon Chowdary) Gen Hx Thalassemia: No (05/20/2016 05:38:Sharon Chowdary) Gen Hx Congenital Heart Defect: No (05/20/2016 05:38:Sharon Chowdary) Gen Hx Neural Tube Defect: No (05/20/2016 05:38:Sharon Chowdary) Gen Hx Down's Syndrome: No (05/20/2016 05:38:Sharon Chowdary) Gen Hx Pacheco-Sachs: No (05/20/2016 05:38:Sharon Chowdary) Gen Hx Ricardo: No (05/20/2016 05:38:Sharon Chowdary) Gen Hx Familial Dysautonomia: No (05/20/2016 05:38:Sharon Chowdary) Gen Hx Sickle Cell Disease/Trait: No (05/20/2016 05:38:Sharon Chowdary) Gen Hx Hemophilia/Blood Disorder: No (05/20/2016 05:38:Sharon Chowdary) Gen Hx Muscular Dystrophy: No (05/20/2016 05:38:Sharon Chowdary) Gen Hx Cystic Fibrosis: No (05/20/2016 05:38:Sharon Chowdary) Gen Hx Huntingtons Chorea: No (05/20/2016 05:38:Sharon Chowdary) Gen Hx Mental Retardation/Autism: No (05/20/2016 05:38:Sharon Chowdary) Gen Hx Tested for Fragile X: No (05/20/2016 05:38:Sharon Chowdary) Gen Hx Other Inher/Chromosomal: No (05/20/2016 05:38:Sharon Chowdary) Gen Hx Maternal Metabolic DO: No (05/20/2016 05:38:Sharon Chowdary) Gen Hx Pt Father or FOB Defect: No (05/20/2016 05:38:Sharon Chowdary) Gen Hx Other Genetic History: No (05/20/2016 05:38:Sharon Chowdary) Gen Hx Drugs/Meds since LMP: No (05/20/2016 05:38:Sharon Chowdary)
--- NOTE | 2016-05-24 18:13 | L&D Current Admission ---
Current Admit Datetime Report Generated by CPN: 05/24/2016 18:00 ADMISSION INFORMATION Current Admit Date/Time: 05/20/2016 05:53 (05/20/2016 05:53:Sharon Chowdary) Reason for Admission: Onset of Labor (05/20/2016 05:53:Sharon Chowdary) Chief Complaint: Contractions (05/20/2016 05:54:Sharon Chowdary) EGA per Dates: 37.1 (05/20/2016 05:53:QS system process) Method of Arrival: Wheelchair (05/20/2016 05:53:Sharon Chowdary) Admitted From: Home (05/20/2016 05:53:Sharon Chowdary) Records Available: Yes (05/20/2016 05:53:Sharon Chowdary) General Admission Information: Reviewed (05/20/2016 05:53:Sharon Chowdary) BELONGINGS/ADVANCED DIRECTIVES Other Belongings: see consent sheet (05/20/2016 05:53:Sharon Chowdary) Disposition of Belongings: Kept with Patient (05/20/2016 05:53:Sharon Chowdary) Advance Direct for Healthcare: No, and Wants No Information (05/20/2016 05:53:Sharon Chowdary) Durable Power of Tube Balancer: No (05/20/2016 05:53:Sharon Chowdary) Living Will: No (05/20/2016 05:53:Sharon Chowdary) Organ Donor: No (05/20/2016 05:53:Sharon Chowdary) Pt Rights Information Given: Yes (05/20/2016 05:53:Sahron Chowdary) Pt Understands Pt Rights: Yes (05/20/2016 05:53:Sharon Chowdary) Patient Rights Comments: patient access (05/20/2016 05:53:Sharon Chowdary) LEARNING ASSESSMENT Knowledge Level: Understands L_D Process (05/20/2016 05:53:Sharon Chowdary) Barriers to Learning: None (05/20/2016 05:53:Sharon Chowdary) Learning Readiness: Motivated (05/20/2016 05:53:Sharon Chowdary) Learns Best By: 1 to 1 Instruction (05/20/2016 05:53:Sharon Chowdary) Learning Needs: Labor and Delivery Process; Pain Management; Symptoms to Report; Treatment Plan; Medication (05/20/2016 05:53:Sharon Chowdary) DOMESTIC VIOLANCE SCREENING Dom Viol Threatened/Hurt: No (05/20/2016 05:53:Sharonmani Chowdary) Hx of Abuse/Neglect past 2yrs: No (05/20/2016 05:53:Sharon Chowdary) Feel Unsafe Going Home: No (05/20/2016 05:53:Sharon Epi) Addt'l Observ Indicating Abuse: No (05/20/2016 05:53:Sharonmani Chowdary) Reason Unable to Complete Screen: N/A, Screen Completed (05/20/2016 05:53:Sharon Chowdary) Considered Personal Harm/Suicide: No (05/20/2016 05:53:Sharon Chowdary) NUTRITIONAL/FUNCTIONAL SCREENING Problem with Appetite >5 Days: No (05/20/2016 05:53:Sharon Chowdary) Chew/Swallow Difficulties: No (05/20/2016 05:53:Sharon Chowdary) Inappropriate Wt Gain/Loss: No (05/20/2016 05:53:Sharonmani Chowdary) Presence Skin Breakdown/Ulcer: No (05/20/2016 05:53:Sharon Chowdary) Special Diet: No (05/20/2016 05:53:Sharon Chowdary) Pt Requests Die Drawing Checker Visit: No (05/20/2016 05:53:Sharon Chowdary) Hx of Any of the Following?: N/A (05/20/2016 05:53:Sharon Chowdary) New Diagnosis of: N/A (05/20/2016 05:53:Sharon Chowdary) Requires Assist w/Ambulation: No (05/20/2016 05:53:Sharon Chowdary) Uses Assist Device to Ambulate: No (05/20/2016 05:53:Sharon Chowdary) Pt Requires Help w/ADL's: No (05/20/2016 05:53:Sharon Chowdary)
--- NOTE | 2016-05-24 18:13 | L&D General Admission ---
General Admit Datetime Report Generated by CPN: 05/24/2016 18:00 INFORMATION Patient Age: 31 (03/18/2016 14:35:QS system process) EDC: 06/09/2016 00:00 (05/20/2016 05:38:Kayla Dickinson RN) : 5 (05/20/2016 05:38:Kayla Dickinson RN) Para: 3 (05/20/2016 05:38:Kayla Dickinson RN) Term: 3 (05/20/2016 05:38:Kayla Dickinson RN) : 0 (05/20/2016 05:38:Kayla Dickinson RN) Spontaneous Abortions: 0 (05/20/2016 05:38:Kayla Dickinson RN) Induced Abortions: 0 (05/20/2016 05:38:Kayla Dickinson RN) Livin (05/20/2016 05:38:Kayla Dickinson RN) Baby, Number in Womb: 1 (05/20/2016 05:38:Sharon Chowdary) CARE Primary Operator Control Room: [facility] (05/20/2016 05:38:Sharon Chowdary) Height (in): 70 (05/20/2016 05:45:QS system process) ALLERGIES Medication Allergy: No (05/20/2016 05:38:Sharon Eip) Medication Allergies: No Known Drug Allergies (05/20/2016) (05/20/2016 05:41:QS system process) Latex Allergy: No Latex Allergies (05/20/2016 05:38:Sharonmani Chowdary) Food Allergies: none (05/20/2016 05:38:Sharon Epi) Environmental Allergies: none (05/20/2016 05:38:Sharon Chowdary) COMMUNICATION Primary Language: Slovak (05/20/2016 05:38:Sharon Chowdary) Medical Tx Preferred Language: Slovak (05/20/2016 05:38:Sharon Chowdary) DEMOGRAPHICS Address: [address] [place] [id number] (03/18/2016 14:35:QS system process) Zipcode: [address] (03/18/2016 14:35:QS system process) Home (03/18/2016 14:35:QS system process) SSN: [id number] (03/18/2016 14:35:QS system process) Next of Kin Name: JAYASHREE ARANA (03/18/2016 14:35:QS system process) Next of Kin (03/18/2016 14:35:QS system process) Next of Kin Relationship: SPO (03/18/2016 14:35:QS system process) Date of : 1985 (03/18/2016 14:35:QS system process) Marital Status: (03/18/2016 14:35:QS system process) Sex: Female (03/18/2016 14:35:QS system process) Race: (03/18/2016 14:35:QS system process) Ethnicity: Non- or (03/18/2016 14:35:QS system process) Taoist: Worship (03/18/2016 14:35:QS system process) DRUG AND ALCOHOL USE Alcohol: No (05/20/2016 05:38:Sharon Chowdary) Cigarettes: Current Some Day Smoker. [id number] (05/20/2016 05:38:Merly Serna RN) Average Cigarettes Smoked: < 5 per day (05/20/2016 05:38:Merly Serna RN) Advised to Stop Smoking: Yes (05/20/2016 05:38:Merly Serna RN) Marijuana: Yes (05/20/2016 05:38:Merly Serna RN) Marijuana Use: Occasional (05/20/2016 05:38:Merly Serna RN) Marijuana Previous Treatment: None (05/20/2016 05:38:Merly Serna RN) Cocaine: No (05/20/2016 05:38:Sharonmani Chowdary) Other Illicit Drugs: No (05/20/2016 05:38:Sharon Epi) VACCINE HISTORY Influenza Vaccine: No (05/20/2016 05:38:Sharon Chowdary) Pneumococcal Vaccine: No (05/20/2016 05:38:Sharon Chowdary) Tetanus Vaccine: No (05/20/2016 05:38:Sharon Chowdary) Tdap Vaccine: No (05/20/2016 05:38:Sharon Chowdary) Hepatitis B Vaccine: No (05/20/2016 05:38:Sharon Chowdary) Wedger: [facility] (05/20/2016 05:38:Sharon Chowdary) Feeding Preference: Both (05/20/2016 05:38:Sharon Chowdary) Circumcision: Yes (05/20/2016 05:38:Sharon Chowdary) Tubal Ligation: No (05/20/2016 05:38:Sharon Chowdary) Tubal Authorization Signed: N/A (05/20/2016 05:38:Sharon Chowdary) Consent: N/A (05/20/2016 05:38:Sharon Chowdary) Consent Signed: N/A (05/20/2016 05:38:Sharon Chowdary) Pain Management Plans: None (05/20/2016 05:38:Merly Serna RN) Plans for Labor and Delivery: None (05/20/2016 05:38:Sharon Chowdary) Support Person: emanual (05/20/2016 05:38:Sharon Chowdary) Support Person Relationship: (05/20/2016 05:38:Sharon Chowdary) Cultural/Spritual Practice: N/A (05/20/2016 05:38:Sharon Chowdary) Spir/Cult Dietary Needs: N/A (05/20/2016 05:38:Sharon Chowdary) LIVING SITUATION/DISCHARGE PLAN Living Arrangements: House (05/20/2016 05:38:Sharon Chowdary) Adequate Access to:: Electric; Heat; Refrigeration; Plumbing/Running water; Phone; Transportation (05/20/2016 05:38:Sharon Chowdary) WIC Program: Yes (05/20/2016 05:38:Sharon Chowdary) Discharge Evaporator Repairer Person: samanta (05/20/2016 05:38:Sharon Chowdary) Person to Help after Discharge: marlenual (05/20/2016 05:38:Sharon Chowdary) Currently Using Commun Resources: No (05/20/2016 05:38:Sharon Chowdary) Outside Agency/Doll Wig Hackler: No (05/20/2016 05:38:Merly Serna RN) Car Seat for Discharge: Yes (05/20/2016 05:38:Sharon Chowdary) Adoption Requested: No (05/20/2016 05:38:Merly Serna RN) Pt Contact w/ Post : N/A (05/20/2016 05:38:Merly Serna RN) LABS Blood Type: B Positive (05/20/2016 05:38:Kayla Dickinson RN) Hemoglobin: 10.2 L (05/21/2016 07:41:QS system process) Hematocrit: 32.6 L (05/21/2016 07:41:QS system process) MCV: 86 (05/21/2016 07:41:QS system process) Group Beta Strep: negative (05/20/2016 05:38:Kayla Dickinson RN) Gonorrhea: Negative (05/20/2016 05:38:Kayla Dickinson RN) Chlamydia: Negative (05/20/2016 05:38:Kayla Dickinson RN) RPR/VDRL: Nonreactive (05/20/2016 05:38:Kayla Dickinson RN) HIV Results: nonreactive (05/20/2016 05:38:Kayla Dickinson RN) Hepatitis B: Negative (05/20/2016 05:38:Kayla Dickinson RN) Rubella: Immune (05/20/2016 05:38:Kayla Dickinson RN) OB/PREVIOUS HISTORY History of Previous : No (05/20/2016 05:38:Sharon Chowdary) History of Gestational Diabetes: No (05/20/2016 05:38:Sharon Chowdary) History of PIH: No (05/20/2016 05:38:Sharon Chowdary) History of Incompetent Cervix: No (05/20/2016 05:38:Sharon Chowdary) History of Placenta Previa/Abrup: No (05/20/2016 05:38:Sharon Chowdary) History of Macrosomia: No (05/20/2016 05:38:Sharon Chowdary) History of IUGR: No (05/20/2016 05:38:Sharon Chowdary) History of Hemorrhage: No (05/20/2016 05:38:Sharon Chowdary) History of Loss/Stillborn: No (05/20/2016 05:38:Sharon Chowdary) History of : No (05/20/2016 05:38:Sharon Chowdary) History of D (Rh) Sensitization: No (05/20/2016 05:38:Sharon Chowdary) History Recurrent Loss/Stillborn: No (05/20/2016 05:38:Sharon Chowdary) History Depression/PP Depression: No (05/20/2016 05:38:Sharon Chowdary) History of Uterine Anomaly/IRMA: No (05/20/2016 05:38:Sharon Chowdary) History of Infertility: No (05/20/2016 05:38:Sharon Chowdary) History of ART Treatment: No (05/20/2016 05:38:Sharon Chowdary) History of IRMA: No (05/20/2016 05:38:Sharon Chowdary) Comments Obstetrical History: 1st 2005- labor 8hrs 2nd 2007- labor 3 hrs 3rd 2012- labor 1 hr preciptous current 2016 (05/20/2016 05:38:Sharon Chowdary) MEDICAL HISTORY Med Hx Diabetes: No (05/20/2016 05:38:Sharon Chowdary) Med Hx Hypertension: No (05/20/2016 05:38:Sharon Chowdary) Med Hx Heart Disease: No (05/20/2016 05:38:Sharon Chowdary) Med Hx Autoimmune Disorder: No (05/20/2016 05:38:Sharon Chowdary) Med Hx Kidney Disease/UTI: No (05/20/2016 05:38:Sharon Chowdary) Med Hx Neurologic/Epilepsy: No (05/20/2016 05:38:Sharon Chowdary) Med Hx Psychiatric Disorders: No (05/20/2016 05:38:Sharon Chowdary) Med Hx Hepatitis/Liver Disease: No (05/20/2016 05:38:Sharon Chowdary) Med Hx Varicosities/Phlebitis: No (05/20/2016 05:38:Sharon Chowdary) Med Hx Thyroid Dysfunction: No (05/20/2016 05:38:Sharon Chowdary) Med Hx Trauma/Violence: No (05/20/2016 05:38:Sharon Chowdary) Med Hx Blood Transfusion: No (05/20/2016 05:38:Sharon Chowdary) Med Hx Pulmonary (Asthma,TB): No (05/20/2016 05:38:Sharon Chowdary) Med Hx Breast: No (05/20/2016 05:38:Sharon Chowdary) Med Hx OYSTER FARMER Surgery: No (05/20/2016 05:38:Sharon Chowdary) Med Hx Hospitalization/Surgery: No (05/20/2016 05:38:Sharon Chowdary) Med Hx Anesthetic Complications: No (05/20/2016 05:38:Sharon Chowdary) Med Hx Abnormal Pap Smear: No (05/20/2016 05:38:Sharon Chowdary) Other Medical Diseases: No (05/20/2016 05:38:Sharon Chowdary) Med Hx Significant Family Hx: No (05/20/2016 05:38:Sharon Chowdary) Details of Med/Surg Hx: anemia sickle cell trait (05/20/2016 05:38:Sharon Chowdary) INFECTIOUS HISTORY Inf Hx Gonorrhea: No (05/20/2016 05:38:Sharon Chowdary) Inf Hx Chlamydia: No (05/20/2016 05:38:Sharon Chowdary) Inf Hx Syphilis: No (05/20/2016 05:38:Sharon Chowdary) Inf Hx HIV/AIDS: No (05/20/2016 05:38:Sharon Chowdary) Inf Hx Human Papilloma Virus: No (05/20/2016 05:38:Sharon Chowdary) Inf Hx Pt/Partner Genital Herpes: No (05/20/2016 05:38:Sharon Chowdary) Inf Hx Tuberculosis/Exposure: No (05/20/2016 05:38:Sharon Chowdary) Inf Hx Hepatitis B,C: No (05/20/2016 05:38:Sharon Chowdary) Inf Hx Rash or Viral Illness: No (05/20/2016 05:38:Sharon Chowdary) GENETIC HISTORY Gen Hx Age >=35 at ADRY: No (05/20/2016 05:38:Sharon Chowdary) Gen Hx Thalassemia: No (05/20/2016 05:38:Sharon Chowdary) Gen Hx Congenital Heart Defect: No (05/20/2016 05:38:Sharon Chowdary) Gen Hx Neural Tube Defect: No (05/20/2016 05:38:Sharon Chowdary) Gen Hx Down's Syndrome: No (05/20/2016 05:38:Sharon Chowdary) Gen Hx Pacheco-Sachs: No (05/20/2016 05:38:Sharon Chowdary) Gen Hx Ricardo: No (05/20/2016 05:38:Sharon Chowdary) Gen Hx Familial Dysautonomia: No (05/20/2016 05:38:Sharon Chowdary) Gen Hx Sickle Cell Disease/Trait: No (05/20/2016 05:38:Sharon Chowdary) Gen Hx Hemophilia/Blood Disorder: No (05/20/2016 05:38:Sharon Chowdary) Gen Hx Muscular Dystrophy: No (05/20/2016 05:38:Sharon Chowdary) Gen Hx Cystic Fibrosis: No (05/20/2016 05:38:Sharon Chowdary) Gen Hx Huntingtons Chorea: No (05/20/2016 05:38:Sharon Chowdary) Gen Hx Mental Retardation/Autism: No (05/20/2016 05:38:Sharon Chowdary) Gen Hx Tested for Fragile X: No (05/20/2016 05:38:Sharon Chowdary) Gen Hx Other Inher/Chromosomal: No (05/20/2016 05:38:Sharon Chowdary) Gen Hx Maternal Metabolic DO: No (05/20/2016 05:38:Sharon Chowdary) Gen Hx Pt Father or FOB Defect: No (05/20/2016 05:38:Sharon Chowdary) Gen Hx Other Genetic History: No (05/20/2016 05:38:Sharon Chowdary) Gen Hx Drugs/Meds since LMP: No (05/20/2016 05:38:Sharon Chowdary)
--- NOTE | 2016-05-25 06:13 | L&D General Admission ---
General Admit Datetime Report Generated by CPN: 05/25/2016 06:00 INFORMATION Patient Age: 31 (03/18/2016 14:35:QS system process) EDC: 06/09/2016 00:00 (05/20/2016 05:38:Kayla Dickinson RN) : 5 (05/20/2016 05:38:Kayla Dickinson RN) Para: 3 (05/20/2016 05:38:aKyla Dickinson RN) Term: 3 (05/20/2016 05:38:Kayla Dickinson RN) : 0 (05/20/2016 05:38:Kayla Dickinson RN) Spontaneous Abortions: 0 (05/20/2016 05:38:Kayla Dickinson RN) Induced Abortions: 0 (05/20/2016 05:38:Kayla Dickinson RN) Livin (05/20/2016 05:38:Kayla Dickinson RN) Baby, Number in Womb: 1 (05/20/2016 05:38:Sharon Chowdary) CARE Primary Recycling Manager: [facility] (05/20/2016 05:38:Sharon Chowdary) Height (in): 70 (05/20/2016 05:45:QS system process) ALLERGIES Medication Allergy: No (05/20/2016 05:38:Sharon Epi) Medication Allergies: No Known Drug Allergies (05/20/2016) (05/20/2016 05:41:QS system process) Latex Allergy: No Latex Allergies (05/20/2016 05:38:Sharonmani Chowdary) Food Allergies: none (05/20/2016 05:38:Sharon Epi) Environmental Allergies: none (05/20/2016 05:38:Sharon Chowdary) COMMUNICATION Primary Language: Faroese (05/20/2016 05:38:Sharon Chowdary) Medical Tx Preferred Language: Faroese (05/20/2016 05:38:Sharon Chowdary) DEMOGRAPHICS Address: [address] [place] [id number] (03/18/2016 14:35:QS system process) Zipcode: [address] (03/18/2016 14:35:QS system process) Home (03/18/2016 14:35:QS system process) SSN: [id number] (03/18/2016 14:35:QS system process) Next of Kin Name: JAYASHREE ARANA (03/18/2016 14:35:QS system process) Next of Kin (03/18/2016 14:35:QS system process) Next of Kin Relationship: SPO (03/18/2016 14:35:QS system process) Date of : 1985 (03/18/2016 14:35:QS system process) Marital Status: (03/18/2016 14:35:QS system process) Sex: Female (03/18/2016 14:35:QS system process) Race: (03/18/2016 14:35:QS system process) Ethnicity: Non- or (03/18/2016 14:35:QS system process) Congregational: Confucianism (03/18/2016 14:35:QS system process) DRUG AND ALCOHOL USE Alcohol: No (05/20/2016 05:38:Sharon Chowdary) Cigarettes: Current Some Day Smoker. [id number] (05/20/2016 05:38:Merly Serna RN) Average Cigarettes Smoked: < 5 per day (05/20/2016 05:38:Merly Serna RN) Advised to Stop Smoking: Yes (05/20/2016 05:38:Merly Serna RN) Marijuana: Yes (05/20/2016 05:38:Merly Serna RN) Marijuana Use: Occasional (05/20/2016 05:38:Merly Serna RN) Marijuana Previous Treatment: None (05/20/2016 05:38:Merly Serna RN) Cocaine: No (05/20/2016 05:38:Sharonmani Chowdary) Other Illicit Drugs: No (05/20/2016 05:38:Sharon Epi) VACCINE HISTORY Influenza Vaccine: No (05/20/2016 05:38:Sharon Chowdary) Pneumococcal Vaccine: No (05/20/2016 05:38:Sharon Chowdary) Tetanus Vaccine: No (05/20/2016 05:38:Sharon Chowdary) Tdap Vaccine: No (05/20/2016 05:38:Sharon Chowdary) Hepatitis B Vaccine: No (05/20/2016 05:38:Sharon Chowdary) Copy Center Operator: [facility] (05/20/2016 05:38:Sharon Chowdary) Feeding Preference: Both (05/20/2016 05:38:Sharon Chowdary) Circumcision: Yes (05/20/2016 05:38:Sharon Chowdary) Tubal Ligation: No (05/20/2016 05:38:Sharon Chowdary) Tubal Authorization Signed: N/A (05/20/2016 05:38:Sharon Chowdary) Consent: N/A (05/20/2016 05:38:Sharon Chowdary) Consent Signed: N/A (05/20/2016 05:38:Sharon Chowdary) Pain Management Plans: None (05/20/2016 05:38:Merly Serna RN) Plans for Labor and Delivery: None (05/20/2016 05:38:Sharon Chowdary) Support Person: emanual (05/20/2016 05:38:Sharon Chowdary) Support Person Relationship: (05/20/2016 05:38:Sharon Chowdary) Cultural/Spritual Practice: N/A (05/20/2016 05:38:Sharon Chowdary) Spir/Cult Dietary Needs: N/A (05/20/2016 05:38:Sharon Chowdary) LIVING SITUATION/DISCHARGE PLAN Living Arrangements: House (05/20/2016 05:38:Sharon Chowdary) Adequate Access to:: Electric; Heat; Refrigeration; Plumbing/Running water; Phone; Transportation (05/20/2016 05:38:Sharon Chowdary) WIC Program: Yes (05/20/2016 05:38:Sharon Chowdary) Discharge Machine Burrer Person: samanta (05/20/2016 05:38:Sharon Chowdary) Person to Help after Discharge: marlenual (05/20/2016 05:38:Sharon Chowdary) Currently Using Commun Resources: No (05/20/2016 05:38:Sharon Chowdary) Outside Agency/Principal Technical Specialist: No (05/20/2016 05:38:Merly Serna RN) Car Seat for Discharge: Yes (05/20/2016 05:38:Sharon Chowdary) Adoption Requested: No (05/20/2016 05:38:Merly Serna RN) Pt Contact w/ Post : N/A (05/20/2016 05:38:Merly Serna RN) LABS Blood Type: B Positive (05/20/2016 05:38:Kayla Dickinson RN) Hemoglobin: 10.2 L (05/21/2016 07:41:QS system process) Hematocrit: 32.6 L (05/21/2016 07:41:QS system process) MCV: 86 (05/21/2016 07:41:QS system process) Group Beta Strep: negative (05/20/2016 05:38:Kayla Dickinson RN) Gonorrhea: Negative (05/20/2016 05:38:Kayla Dickinson RN) Chlamydia: Negative (05/20/2016 05:38:Kayla Dickinson RN) RPR/VDRL: Nonreactive (05/20/2016 05:38:Kayla Dickinson RN) HIV Results: nonreactive (05/20/2016 05:38:Kayla Dickinson RN) Hepatitis B: Negative (05/20/2016 05:38:Kayla Dickinson RN) Rubella: Immune (05/20/2016 05:38:Kayla Dickinson RN) OB/PREVIOUS HISTORY History of Previous : No (05/20/2016 05:38:Sharon Chowdary) History of Gestational Diabetes: No (05/20/2016 05:38:Sharon Chowdary) History of PIH: No (05/20/2016 05:38:Sharon Chowdary) History of Incompetent Cervix: No (05/20/2016 05:38:Sharon Chowdary) History of Placenta Previa/Abrup: No (05/20/2016 05:38:Sharon Chowdary) History of Macrosomia: No (05/20/2016 05:38:Sharon Chowdary) History of IUGR: No (05/20/2016 05:38:Sharon Chowdary) History of Hemorrhage: No (05/20/2016 05:38:Sharon Chowdary) History of Loss/Stillborn: No (05/20/2016 05:38:Sharon Chowdary) History of : No (05/20/2016 05:38:Sharon Chowdary) History of D (Rh) Sensitization: No (05/20/2016 05:38:Sharon Chowdary) History Recurrent Loss/Stillborn: No (05/20/2016 05:38:Sharon Chowdary) History Depression/PP Depression: No (05/20/2016 05:38:Sharon Chowdary) History of Uterine Anomaly/IRMA: No (05/20/2016 05:38:Sharon Chowdary) History of Infertility: No (05/20/2016 05:38:Sharon Chowdary) History of ART Treatment: No (05/20/2016 05:38:Sharon Chowdary) History of IRMA: No (05/20/2016 05:38:Sharon Chowdary) Comments Obstetrical History: 1st 2005- labor 8hrs 2nd 2007- labor 3 hrs 3rd 2012- labor 1 hr preciptous current 2016 (05/20/2016 05:38:Sharon Chowdary) MEDICAL HISTORY Med Hx Diabetes: No (05/20/2016 05:38:Sharon Chowdary) Med Hx Hypertension: No (05/20/2016 05:38:Sharon Chowdary) Med Hx Heart Disease: No (05/20/2016 05:38:Sharon Chowdary) Med Hx Autoimmune Disorder: No (05/20/2016 05:38:Sharon Chowdary) Med Hx Kidney Disease/UTI: No (05/20/2016 05:38:Sharon Chowdary) Med Hx Neurologic/Epilepsy: No (05/20/2016 05:38:Sharon Chowdary) Med Hx Psychiatric Disorders: No (05/20/2016 05:38:Sharon Chowdary) Med Hx Hepatitis/Liver Disease: No (05/20/2016 05:38:Sharon Chowdary) Med Hx Varicosities/Phlebitis: No (05/20/2016 05:38:Sharon Chowdary) Med Hx Thyroid Dysfunction: No (05/20/2016 05:38:Sharon Chowdary) Med Hx Trauma/Violence: No (05/20/2016 05:38:Sharon Chowdary) Med Hx Blood Transfusion: No (05/20/2016 05:38:Sharon Chowdary) Med Hx Pulmonary (Asthma,TB): No (05/20/2016 05:38:Sharon Chowdary) Med Hx Breast: No (05/20/2016 05:38:Sharon Chowdary) Med Hx ASSOCIATE STORE LEADER Surgery: No (05/20/2016 05:38:Sharon Chowdary) Med Hx Hospitalization/Surgery: No (05/20/2016 05:38:Sharon Chowdary) Med Hx Anesthetic Complications: No (05/20/2016 05:38:Sharon Chowdary) Med Hx Abnormal Pap Smear: No (05/20/2016 05:38:Sharon Chowdary) Other Medical Diseases: No (05/20/2016 05:38:Sharon Chowdary) Med Hx Significant Family Hx: No (05/20/2016 05:38:Sharon Chowdary) Details of Med/Surg Hx: anemia sickle cell trait (05/20/2016 05:38:Sharon Chowdary) INFECTIOUS HISTORY Inf Hx Gonorrhea: No (05/20/2016 05:38:Sharon Chowdary) Inf Hx Chlamydia: No (05/20/2016 05:38:Sharon Chowdary) Inf Hx Syphilis: No (05/20/2016 05:38:Sharon Chowdary) Inf Hx HIV/AIDS: No (05/20/2016 05:38:Sharon Chowdary) Inf Hx Human Papilloma Virus: No (05/20/2016 05:38:Sharon Chowdary) Inf Hx Pt/Partner Genital Herpes: No (05/20/2016 05:38:Sharon Chowdary) Inf Hx Tuberculosis/Exposure: No (05/20/2016 05:38:Sharon Chowdary) Inf Hx Hepatitis B,C: No (05/20/2016 05:38:Sharon Chowdary) Inf Hx Rash or Viral Illness: No (05/20/2016 05:38:Sharon Chowdary) GENETIC HISTORY Gen Hx Age >=35 at ARDY: No (05/20/2016 05:38:Sharon Chowdary) Gen Hx Thalassemia: No (05/20/2016 05:38:Sharon Chowdary) Gen Hx Congenital Heart Defect: No (05/20/2016 05:38:Sharon Chowdary) Gen Hx Neural Tube Defect: No (05/20/2016 05:38:Sharon Chowdary) Gen Hx Down's Syndrome: No (05/20/2016 05:38:Sharon Chowdary) Gen Hx Pacheco-Sachs: No (05/20/2016 05:38:Sharon Chowdary) Gen Hx Ricardo: No (05/20/2016 05:38:Sharon Chowdary) Gen Hx Familial Dysautonomia: No (05/20/2016 05:38:Sharon Chowdary) Gen Hx Sickle Cell Disease/Trait: No (05/20/2016 05:38:Sharon Chowdary) Gen Hx Hemophilia/Blood Disorder: No (05/20/2016 05:38:Sharon Chowdary) Gen Hx Muscular Dystrophy: No (05/20/2016 05:38:Sharon Chowdary) Gen Hx Cystic Fibrosis: No (05/20/2016 05:38:Sharon Chowdary) Gen Hx Huntingtons Chorea: No (05/20/2016 05:38:Sharon Chowdary) Gen Hx Mental Retardation/Autism: No (05/20/2016 05:38:Sharon Chowdary) Gen Hx Tested for Fragile X: No (05/20/2016 05:38:Sharon Chowdary) Gen Hx Other Inher/Chromosomal: No (05/20/2016 05:38:Sharon Chowdary) Gen Hx Maternal Metabolic DO: No (05/20/2016 05:38:Sharon Chowdary) Gen Hx Pt Father or FOB Defect: No (05/20/2016 05:38:Sharon Chowdary) Gen Hx Other Genetic History: No (05/20/2016 05:38:Sharon Chowdary) Gen Hx Drugs/Meds since LMP: No (05/20/2016 05:38:Sharon Chowdary)
== END 2016-05-22 12:37 | disposition home or self-care (01) | DRG 775 ==
LOC: LC 05:32 → LR 05:59 → 2S 08:29 → 2N 16:03
PROVIDERS: ADMIT Obstetrics & Gynecology; ATTEND Obstetrics & Gynecology
PROC: 10E0XZZ Delivery of Products of Conception, External Approach (ICD-10-PCS; principal; 2016-05-20)
PROC: 4A1HXCZ Monitoring of Products of Conception, Cardiac Rate, External Approach (ICD-10-PCS; 2016-05-20)
PROC: 3E0234Z Introduction of Serum, Toxoid and Vaccine into Muscle, Percutaneous Approach (ICD-10-PCS; 2016-05-22)
DX: O62.3 Precipitate labor (principal); O99.324 Drug use complicating childbirth; O99.334 Smoking (tobacco) complicating childbirth; F17.210 Nicotine dependence, cigarettes, uncomplicated; F12.90 Cannabis use, unspecified, uncomplicated; O99.02 Anemia complicating childbirth; D64.9 Anemia, unspecified; D57.3 Sickle-cell trait; Z37.0 Single live birth; Z3A.37 37 weeks gestation of pregnancy; Z23 Encounter for immunization
CPT/HCPCS: 36415; 80307; 80353; 85025; 85027; 86592; 86850; 86900; 86901; 90715; G0480; J2590; J3490